=== PATIENT | male | born 1940 | race Caucasian/White ===

== ENCOUNTER 2021-03-29 09:39 | Inpatient (IN) | payer MEDICARE, OTHER, SELFPAY ==
[2021-03-29] VITALS (31 sets, daily range): BP systolic 107–144; BP diastolic 50–79; PULSE 41–67; RESP 14–24; TEMP 35.9–37; O2SAT 95–100; BMI 33.4; BMI 30.6
[2021-03-29] MEDS: 0.9% Normal Saline 1,000 ML 999 ML IV (09:39)
[2021-03-29] MEDS: Heparin Injection (Vial) 5,000 UNIT/ML VIAL 4000 UNIT IV (09:45)
[2021-03-29] MEDS: TICAGRELOR 90 MG TABLET 180 MG PO (09:45)
--- NOTE | 2021-03-29 09:46 | EKG12_ITS ---
Test Reason : CP/PRE-HOSP STEMI Blood Pressure : / mmHG Vent. Rate : 047 BPM Atrial Rate : 047 BPM P-R Int : 216 ms QRS Dur : 084 ms QT Int : 458 ms P-R-T Axes : 013 020 083 degrees QTc Int : 405 ms Sinus bradycardia with 1st degree A-V block Inferior infarct , acute Lateral injury pattern ACUTE [place] / STEMI Consider right ventricular involvement in acute inferior infarct Abnormal ECG Confirmed by DONOVAN TUCKER, HARMEET ([id number]), deputy editor in chief KAMRYN LOBATO ([id number]) on 04/03/2021 12:50:00 PM Referred By: Socorro Reyes Confirmed By:HARMEET MAN MD
--- NOTE | 2021-03-29 09:47 | ED.VIS.CHEST ---
HPI History of Present Illness Chief Complaint: Chest Pain Informant: patient and EMS Narrative Narrative: 81-year-old male presents the emergency department with chest pain. Patient called EMS after experiencing chest pain while mowing his lawn. He notes a history of hypertension and takes atenolol 20 mg once a day. He denies any history of smoking high cholesterol or diabetes. He denies any black or bloody stools recent trauma or bleeding disorders. Prehospital EKG activated STEMI for inferior lateral ST elevation. PFSH PFS Medical History Hypertension Prostate cancer Home Medications atenolol 20 mg PO DAILY 03/29/21 [History Last Taken Unknown] Allergy/AdvReac Type Severity Reaction Status Date / Time Sulfa (Sulfonamide Allergy PT UNSURE Verified 03/29/21 09:41 Antibiotics) OF REACTION Social History (Updated 03/29/21 @ 09:[address] Elian Lucero, DO) Smoking Status: Never smoker alcohol intake: never ROS ROS ED Constitutional Constitutional ED: Denies chills or weight loss Eyes Eyes: Denies change in vision or diplopia ENT ENT ED: Denies ear pain, rhinorrhea or sore throat Cardiovascular Cardiovascular: Reports chest pain; Denies orthopnea, palpitations or racing heartbeat Respiratory/Chest Respiratory/Chest: Denies cough, dyspnea or orthopnea Gastrointestinal Gastrointestinal: Denies abdominal pain, diarrhea, nausea or vomiting Genitourinary Genitourinary ED: Denies dysuria, hematuria or urinary frequency Musculoskeletal Musculoskeletal: Denies arthralgias or myalgias Integumentary Denies abscess or rash Neurologic Neurologic: Denies headache(s) or weakness Psychiatric Psychiatric: Denies anxiety, depression, suicidal ideation or suicidal thoughts Endocrine Endocrinology: Denies polydipsia, polyphagia or polyuria Allergic/Immunologic Allergic/Immunologic ED: Denies mouth swelling, tongue swelling or urticaria EXAM Physical Exam Const Vital Signs: 03/29/21 09:41 Respiratory Rate 18 Blood Pressure 110/65 Positive well nourished and well developed General Appearance ED: well developed HEENT Reports normocephalic, head/scalp atraumatic and moist mucous membranes Eyes PERRL and EOMs intact bilaterally Neck no lymphadenopathy, supple and no JVD Resp normal respiratory effort and clear to auscultation bilaterally Cardio regular rate and no murmurs Rate: bradycardia GI normal to inspection, nondistended, normoactive bowel sounds and non-tender Palpation: soft Back/Spine no CVA tenderness and normal ROM Extremity normal to inspection General Extremety ED: Negative for edema General Extremity: Negative for edema Neuro oriented x3 and CN's II-XII intact bilaterally Sensorium / Orientation: alert Motor Exam: strength 5/5 throughout Psych mental status grossly normal Mood & Affect: Negative for depressed or tearful Skin no rashes or lesions noted and no wounds Skin Narrative: Diaphoresis Heart Score History: Highly Suspicious ECG: Significant ST-Depression Age: >/= 65 years Risk Factors: 1 or 2 Risk Factors Score: 7 MDM MDM MDM Narrative Medical decision making narrative: Prehospital STEMI team was activated. Upon arrival the emergency department and after interviewing him the patient received 180 mg of Brilinta 4000 units of heparin. 4 baby aspirin's were previously administered by EMS. Because of the bradycardia and the inferior elevation nitroglycerin was held. He was prepped and taken to the Community Service Officer Coordinator. Lab Data Attestation: I reviewed the patient's lab results. EKG Initial EKG: Attestation: I personally reviewed and interpreted this EKG as follows: Comments: EKG demonstrates a sinus bradycardia with first-degree AV block. There is ST elevation noted inferiorly and laterally. Ventricular rate 47 bpm Critical Care Time Critical Care Time: Yes Critical care time (excluding procedures): 30-74 minutes (5 minutes), Including time spent:, Discussing w/Patient &/or Family/Concrete Tile Machine Operator, Discussing w/Consultants, Arranging Admission or Transfer and Performing Direct Patient Care at Bedside Discharge Plan Dx/Rx/DC Orders Clinical Impression: ST elevation (STEMI) myocardial infarction Disposition Disposition: Acute Care Hospital [facility] Discharge Date/Time: 03/29/21 09:46
--- NOTE | 2021-03-29 09:49 | NURSING ---
NO OLD EKGS
[2021-03-29 10:03] LABS: Absolute Lymphocyte Count 2.44 X10^3/uL (0.83-4.51); Absolute Neutrophil Count 3.2 X10^3/uL (2.0-7.7); Basophil# 0.04 X10^3/uL; Basophil% 0.6 % (0-1); Eosinophil# 0.17 X10^3/uL; Eosinophils% 2.6 % (0-5); Hematocrit 37.5 % (40-54); Hemoglobin 12.9 g/dL (13.0-16.5); Lymphocyte # 2.44 X10^3/ul (0.83-4.51); Lymphocyte % 37.5 % (19-41); Mean Corp Hgb Conc 34.4 g/dL (32-36); Mean Corpuscular Hgb 31.9 pg (27.0-32.0); Mean Corpuscular Volume 92.6 fL (80-94); Mean Platelet Vol. 9.2 fl (6.2-12.0); Monocyte# 0.65 X10^3/uL; NRBC Flagged by Analyzer 0 % (0-5); Neutrophil # 3.18 X10^3/uL (2.7-7.7); Neutrophil % 48.8 % (47-70); Platelet Count 244 K/mm3 (150-450); RBC Distribution Width CV 12.5 % (11.6-14.6); RBC Distribution Width SD 42.2 fl (35.1-43.9); Red Blood Count 4.05 M/mm3 (4.6-6.2); White Blood Count 6.5 K/mm3 (4.4-11.0)
--- NOTE | 2021-03-29 10:05 | NURSING ---
ICU [facility] STEMI
[2021-03-29 10:08] LABS: International Normalized Ratio 1.2; Prothrombin Time (Protime)PT. 14.4 SECONDS (11.7-14.9)
[2021-03-29 10:10] LABS: Partial Thromboplast Time 28.5 Seconds (24.1-36.2)
[2021-03-29 10:15] LABS: Anion Gap 6 (5-15); BUN 14 mg/dL (7-18); BUN/Creat Ratio 11.6 RATIO (10-20); Calcium,Total 9.1 mg/dL (8.5-10.1); Chloride 108 mmol/L (98-107); Creatinine, Serum 1.21 mg/dL (0.70-1.30); EST Glomerular Filtration Rate 61 mL/min (>60); Est Glom Filt Rate - Afr Amer 74 mL/min (>60); Estimated Creatinine Clearance 45.54 ml/min; Glucose 161 mg/dL (74-106); Potassium 3.9 mmol/L (3.5-5.1); Sodium Level 138 mmol/L (136-145); Troponin-I HS 21.9 pg/mL (3.0-78.5)
--- NOTE | 2021-03-29 11:11 | EKG12_ITS ---
Test Reason : AM EKG Blood Pressure : / mmHG Vent. Rate : 051 BPM Atrial Rate : 051 BPM P-R Int : 206 ms QRS Dur : 070 ms QT Int : 548 ms P-R-T Axes : 037 -41 -63 degrees QTc Int : 505 ms Sinus bradycardia Left axis deviation Inferior infarct , age undetermined ST & T wave abnormality, consider lateral ischemia Confirmed by DONOVAN TUCKER, HARMEET ([id number]), editor house organ KAMRYN LOBATO ([id number]) on 04/04/2021 7:48:55 AM Referred By: Socorro Reyes Confirmed By:HARMEET MAN MD
--- NOTE | 2021-03-29 11:24 | PCI.CARDCATH ---
PCI Cardiac Cath Report PCI Report: Procedures performed; 1. Left heart catheterization 2. Left ventriculogram and measurement of LVEDP 3. Selective cholangiography 4. Successful percutaneous coronary intervention/PCI of the culprit occluded large dominant RCA with reduction of stenosis to 0 Initial NADIYA flow is 0 post procedure NADIYA-3 flow 5. Placement of Perclose to close the right common femoral artery arteriotomy site 6 TR band to the right radial artery to maintain hemostasis of the arteriotomy site. Preprocedure diagnosis; 81-year-old male who developed severe retrosternal chest pain with diaphoresis while working on his yard mowing the lawn Brought in by EMS service with STEMI, sinus bradycardia, heart rate 41, and significant ST elevation in the inferior and lateral leads with reciprocal change in septal leads V1?V2 Was given aspirin 324 and heparin 4000 international unit. Diagnostic and interventional equipment used; 1. 5 Wallisian JL 4.5 2. 5 Wallisian JR4 guide catheter 3. By 014 run-through extra floppy 180 cm straight guidewire 4. Emergent MR 2.5 x 50 mm balloon 5. Drug-eluting stent/Orsiro 4 x 26 mm 6. Emerge NC 4 x 15 mm for postdilatation. Procedure in detail; We obtained access from the right radial artery, right common femoral artery due to severe bradycardia and a low blood pressure around 100 mmHg Patient was given the heparin IV. We proceed with the 5 Wallisian JL 4.5, cannulated the left main without difficulty multiple views of the left coronary system including JOSE, MEJIA cranial and caudal views. Then we proceed with a JR4 identified the lesion the culprit which is occluded proximal large dominant RCA. Then will proceed with him JR4 guide catheter angiographic view obtained and then will proceed with the guidewire, across the lesion predilated the lesion with 2.5 x 15 followed by placement of drug-eluting stent/Orsiro 4 x 26 mm, postdilated with 4 x 15 mm NC balloon/emerge and achieve NADIYA-3 flow, noted there is a lesion in the RPDA which is small vessel around 2 mm. Pigtail catheter used 5 Wallisian, angled pigtail catheter and a low ventriculogram using 30 cc of contrast obtained in, 30 degree MEJIA projection. Following this selective right common femoral artery angiography obtain and Perclose used to close arteriotomy site. Findings; Hemodynamics; LV systolic function preserved ejection fraction of 50-55% There is no systolic gradient across aortic valve LVEDP measuring around 18 mmHg Coronary angiography 1. Left main coronary artery, luminal irregularity bifurcating into LAD and the left circumflex. 2. LAD, moderate size vessel, tortuous with diffuse atherosclerosis of around 60-70% with bridging in the mid LAD 3. The left circumflex is small with nonobstructive proximal atherosclerosis of around 20-30 4. Occluded culprit lesion and a large dominant proximal RCA with predilatation and placement of drug-eluting stent and maintaining of NADIYA-3 flow in the RCA 5. Successful placement of Perclose to close the right common femoral artery arteriotomy and a TR band to maintain hemostasis to the right radial artery with no complication in the Front End Architect Remarkable ST normalization noted with no, significant arrhythmia or high-grade AV block And resolution of symptoms of chest pain. Medication and dosage; 1. Patient was given a total of 6000 international unit IV heparin and 3000 units heparin through the right radial artery sheath ACT level is 263 2. Integrilin 2 bolus followed by Integrilin based on his renal function. 3. Brilinta 180 mg, and aspirin 324 mg 4. 0.5 mg of atropine Conclusion and recommendation; Successful percutaneous coronary intervention of occluded large, dominant proximal RCA as a specified Lesion in the RPDA small vessel 60?70%, multiple attempts to cross was difficult left alone to reevaluate on his next visit with assessment of the mid LAD Based on the stress test which can be set up as an outpatient by established medical records supervisor Dr. Ruiz Patient to continue on dual antiplatelet therapy/DAPT Brilinta 90 mg twice daily and a low-dose aspirin 81 mg for 1 year to be monitored by his medical records supervisor Dr. Ruiz I discontinue atenolol High-dose atorvastatin 80 mg. And will consider beta-rajiv and SHERRI inhibitor in the morning once he is stable. Finding of cardiac catheterization and plan of treatment discussed with the family patient and the primary medical records supervisor Dr. Ruiz. Socorro Reyes MD,[facility] decision science analyst
[2021-03-29 12:31] LABS: Absolute Lymphocyte Count 0.53 X10^3/uL (0.83-4.51); Basophil# 0.02 X10^3/uL; Basophil% 0.3 % (0-1); Eosinophil# 0.02 X10^3/uL; Eosinophils% 0.3 % (0-5); Hematocrit 35.4 % (40-54); Hemoglobin 11.7 g/dL (13.0-16.5); Lymphocyte # 0.53 X10^3/ul (0.83-4.51); Lymphocyte % 7.8 % (19-41); Mean Corp Hgb Conc 33.1 g/dL (32-36); Mean Corpuscular Hgb 31.4 pg (27.0-32.0); Mean Corpuscular Volume 94.9 fL (80-94); Monocyte# 0.26 X10^3/uL; Monocyte% 3.8 % (0-10); NRBC Flagged by Analyzer 0 % (0-5); Neutrophil # 5.97 X10^3/uL (2.7-7.7); Neutrophil % 87.5 % (47-70); POSITIVE DIFFERENTIAL YES; Platelet Count 168 K/mm3 (150-450); RBC Distribution Width CV 12.6 % (11.6-14.6); RBC Distribution Width SD 43.3 fl (35.1-43.9); Red Blood Count 3.73 M/mm3 (4.6-6.2); White Blood Count 6.8 K/mm3 (4.4-11.0)
[2021-03-29] MEDS: 0.9% Saline Lock 10 ML Syringe IV (12:32)
[2021-03-29] MEDS: 0.9% Normal Saline 1,000 ML 75 ML IV ×2 (12:32→23:27)
[2021-03-29 12:35] LABS: Differential Indicated SCAN CRITERIA MET
--- NOTE | 2021-03-29 12:41 | CRPHASE1_ITS ---
Patient Communication PHII Cardiac Rehab Discussed with Patient:: Yes Guide to Cardiac Rehab Given to Patient:: Yes Cardiac Rehab Facility Choice List Given to Patient:: Yes Choice Program [facility] CR PHII:: Communication Given to CR Choice Program Other:: Communication Given to CR Visual Merchandising Director:: Socorro Reyes Phase II Cardiac Rehab:: Yes Sessions:: 36 sessions - 3 days/wk, 12 weeks Cardiac Rehabilitation Info Cardiac Rehabilitation Program Information: Cardiac Rehabilitation is important for patients like you who are recovering from a heart problem. Cardiac rehabilitation programs are recognized as integral to the continued care of the patient with coronary heart disease. The cardiac rehabilitation program is designed to optimize a patient's physical, psychological, and social functioning. Health day care director work in cardiac rehabilitation programs and assist you with getting the treatments you need to get stronger and healthier - like exercise, healthy eating habits, and medications. Cardiac rehabilitation has been show to help people with heart problems live longer and have better life enjoyment than people who do not go to cardiac rehabilitation. Please contact the Cardiac Rehabilitation Program at [facility] at in two weeks if you have not heard from them.
--- NOTE | 2021-03-29 12:42 | CRPH1.INST_ITS ---
General Education CAD and cardiac anatomy and function:: Patient communicates acknowledgment Explanation of diagnoses and procedures:: Patient communicates acknowledgment Sign/Symptoms of VA:: Patient communicates acknowledgment Antiplatelet therapy: Patient communicates acknowledgment Smoking Patient Nicotine/Smoking Risk Factors Are:: Never smoked Dyslipidemia Recommendations Include:: Lipid profile not available Overweight/Obesity Patient Overweight/Obesity Risk Factors Are:: Obesity - > or = 30 Recommendations Include:: Weight loss of 5-10%, Reduced calorie diet, Exercise 5-7 times/week Overweight/Obesity:: Patient communicates acknowledgment Hypertension Recommendations Include:: Maintain BP <130/85, BP <130/80 if diabetic, DASH dietary guidelines, Decrease/maintain normal body weight Hypertension:: Patient communicates acknowledgment Diabetes Patient Diabetes Risk Factors Are:: No documented hx of diabetes Metabolic Syndrome Patient Metabolic Syndrome Risk Factors Are [3 of 5]:: Fasting blood sugar > 100 mg/dL, Waist circumference > 35 [female] or 40 [male], Hypertension Recommendations Include:: Does not meet criteria Metabolic Syndrome Response Code:: Patient communicates acknowledgment Sedentary Patient Sedentary Risk Factors Are:: Lack of regular exercise Recommendations Include:: Aerobic exercise 5-7 times/week for 20-30 minutes continuously, Benefits of regular exercise, Discussed home walking program, Mo nitored Outpatient Cardiac Rehab Sedentary Response Code:: Patient communicates acknowledgment Stress Recommendations Include:: Identification of stressors, and assessment of coping skills, Stress management techniques Stress Response Code:: Patient communicates acknowledgment
[2021-03-29 12:50] LABS: Anion Gap 7 (5-15); BUN 12 mg/dL (7-18); BUN/Creat Ratio 12.7 RATIO (10-20); Calcium,Total 8.1 mg/dL (8.5-10.1); Chloride 105 mmol/L (98-107); Creatinine, Serum 0.94 mg/dL (0.70-1.30); EST Glomerular Filtration Rate 81 mL/min (>60); Est Glom Filt Rate - Afr Amer 98 mL/min (>60); Glucose 111 mg/dL (74-106); Potassium 4.8 mmol/L (3.5-5.1); Sodium Level 134 mmol/L (136-145)
--- NOTE | 2021-03-29 13:13 | NURSING ---
integrilin gtt running at 16 ml/hr when arrived to ICU, patient weight documented at 100 kg. Per ICU bed, pt weight 83.4 kg, integrilin gtt now running at 13.3 ml/hr
--- NOTE | 2021-03-29 14:59 | HP.PCM.HOS_ITS ---
HPI - General General Date of Admission: 03/29/21 HPI Narrative ANNEMARIE SAMANO, is a 81 M who presents to the hospital with chest pain. It occurred while working in his yard and mowing the lawn. He denies having symptoms like this prior. When he arrived as a STEMI alert he was noticed to be bradycardic with a heart rate in the 40s he had ST elevations in the inferior leads as well as the lateral leads with reciprocal changes in V1 and V2. He was loaded with aspirin as well as heparin and taken straight to the Gas Generator Operator where he was found to have an RCA lesion as well as a mid LAD lesion. He had the RCA lesion stented with a drug-eluting stent. [facility] Medical History (Updated 03/29/21 @ 15:[address] Pedro Mcintyre MD) Anxiety Hypertension Prostate cancer Home Medications atenolol 20 mg PO DAILY 03/29/21 [History Last Taken Unknown] Allergy/AdvReac Type Severity Reaction Status Date / Time Sulfa (Sulfonamide Allergy PT UNSURE Verified 03/29/21 09:41 Antibiotics) OF REACTION Family History (Updated 03/29/21 @ 15:[address] Pedro Mcintyre MD) Father Cancer Mother Heart disease Surgical History (Updated 03/29/21 @ 15:[address] Pedro Mcintyre MD) Status post coronary artery stent placement Status post inguinal hernia repair Social History (Updated 03/29/21 @ 09:[address] Elian Lucero DO) Smoking Status: Never smoker alcohol intake: never ROS Constitutional Constitutional: Denies chills, fatigue, fever(s) or malaise Eyes Eyes: Denies blurry vision ENT HEENT: Denies headache(s) or nasal discharge Cardiovascular Cardiovascular: Reports chest pain and diaphoresis; Denies dyspnea on exertion or syncope Respiratory/Chest Respiratory/Chest: Denies cough, shortness of breath at rest or shortness of breath with exertion Gastrointestinal Gastrointestinal: Reports nausea; Denies constipation, diarrhea or vomiting Genitourinary Genitourinary: Denies dysuria Neurologic Neurologic: Denies focal weakness, numbness or tremor(s) Psychiatric Psychiatric: Denies anxiety or depression Vital Signs Vital Signs Vital Signs: 03/29/21 09:41 03/29/21 09:46 03/29/21 09:53 Temperature 97 F L Temperature Source Temporal Pulse Rate 41 L Respiratory Rate 18 18 Respiratory Effort Short of Breath Respiratory Pattern Normal Blood Pressure 110/65 110/65 Blood Pressure [BP] Blood Pressure Mean 80 Blood Pressure Mean [BP] Blood Pressure Source Blood Pressure Source [BP] Blood Pressure Position Blood Pressure Position [BP] Blood Pressure Location Blood Pressure Location [BP] Pulse Ox 96 Oxygen Delivery Method Room Air Oxygen Flow Rate (L/min) 2 03/29/21 10:03 03/29/21 11:30 03/29/21 11:44 Temperature 97.8 F 96.7 F L Temperature Source Temporal Temporal Pulse Rate 46 L 56 L 60 Respiratory Rate 18 17 Respiratory Effort Respiratory Pattern Blood Pressure 110/70 129/79 H Blood Pressure [BP] Blood Pressure Mean 83 95 Blood Pressure Mean [BP] Blood Pressure Source Monitor Blood Pressure Source [BP] Blood Pressure Position Semi-Fowlers Blood Pressure Position [BP] Blood Pressure Location Left Arm Blood Pressure Location [BP] Pulse Ox 97 100 Oxygen Delivery Method Room Air Room Air Oxygen Flow Rate (L/min) 03/29/21 11:45 03/29/21 12:00 03/29/21 12:15 Temperature 96.7 F L Temperature Source Temporal Pulse Rate 59 L 61 54 L Respiratory Rate 16 14 19 H Respiratory Effort Respiratory Pattern Blood Pressure 127/71 H 141/75 H 140/62 H Blood Pressure [BP] Blood Pressure Mean 89 97 88 Blood Pressure Mean [BP] Blood Pressure Source Monitor Monitor Monitor Blood Pressure Source [BP] Blood Pressure Position Semi-Fowlers Semi-Fowlers Semi-Fowlers Blood Pressure Position [BP] Blood Pressure Location Left Arm Left Arm Left Arm Blood Pressure Location [BP] Pulse Ox 99 99 99 Oxygen Delivery Method Room Air Room Air Room Air Oxygen Flow Rate (L/min) 03/29/21 12:30 03/29/21 12:45 03/29/21 13:00 Temperature Temperature Source Pulse Rate 54 L 52 L 56 L Respiratory Rate 16 16 19 H Respiratory Effort Respiratory Pattern Blood Pressure 144/67 H 138/64 H Blood Pressure [BP] 138/70 H Blood Pressure Mean 92 88 Blood Pressure Mean [BP] 92 Blood Pressure Source Monitor Monitor Blood Pressure Source [BP] Monitor Blood Pressure Position Semi-Fowlers Supine Blood Pressure Position [BP] Supine Blood Pressure Location Left Arm Left Arm Blood Pressure Location [BP] Left Arm Pulse Ox 99 99 100 Oxygen Delivery Method Room Air Room Air Room Air Oxygen Flow Rate (L/min) Weight Weight: 183 lb 13.848 oz Body Mass Index (BMI) 30.6 Physical Exam Const alert, oriented x3 and no apparent distress General Appearance: cooperative HEENT normocephalic and moist oral mucous membranes Eyes PERRL, EOMs intact bilaterally and conjunctivae normal Neck supple and no JVD Resp normal respiratory effort, no retractions, no use of accessory muscles and clear to auscultation bilaterally Auscultation: Negative for crackles, rales, rhonchi or wheezes Cardio regular rate, regular rhythm, S1 normal heart sound, S2 normal heart sound and no murmurs GI soft to palpation, non-tender and non-distended; Negative for hepatosplenomegaly Extremity no clubbing, cyanosis or edema Skin no rashes or lesions noted Skin Narrative: Dressing CDI Neuro no focal motor deficits and no sensory deficits noted Psych affect normal Appearance: appropriate Results Lab / Micro Data Result Diagrams: 03/29/21 12:10 03/29/21 12:10 Labs: Laboratory Results - last 24 hr 03/29/21 03/29/21 03/29/21 09:45 09:45 09:45 WBC 6.5 RBC 4.05 L Hgb 12.9 L Hct 37.5 L MCV 92.6 MCH 31.9 MCHC 34.4 RDW Std Deviation 42.2 RDW Coeff of Devyn 12.5 Plt Count 244 MPV 9.2 Immature Gran % (Auto) 0.500 Neut % (Auto) 48.8 Lymph % (Auto) 37.5 [place] % (Auto) 10.0 Eos % (Auto) 2.6 Baso % (Auto) 0.6 Absolute Neuts (auto) 3.2 Absolute Lymphs (auto) 2.44 Nucleated RBC % 0 PT 14.4 INR 1.2 APTT 28.5 Sodium 138 Potassium 3.9 Chloride 108 H Carbon Dioxide 24.0 Anion Gap 6 BUN 14 Creatinine 1.21 Estim Creat Clear Calc 45.54 Est GFR (MDRD) Af Amer 74 Est GFR (MDRD) Non-Af 61 BUN/Creatinine Ratio 11.6 Glucose 161 H Calcium 9.1 Troponin I High Sens 21.9 03/29/21 03/29/21 03/29/21 12:10 12:10 14:15 WBC 6.8 RBC 3.73 L Hgb 11.7 L Hct 35.4 L MCV 94.9 H MCH 31.4 MCHC 33.1 RDW Std Deviation 43.3 RDW Coeff of Devyn 12.6 Plt Count 168 MPV 9.0 Immature Gran % (Auto) 0.300 Neut % (Auto) 87.5 H Lymph % (Auto) 7.8 L [place] % (Auto) 3.8 Eos % (Auto) 0.3 Baso % (Auto) 0.3 Absolute Neuts (auto) 6.0 Absolute Lymphs (auto) 0.53 L Nucleated RBC % 0 PT INR APTT Sodium 134 L Potassium 4.8 Chloride 105 Carbon Dioxide 22.0 Anion Gap 7 BUN 12 Creatinine 0.94 Estim Creat Clear Calc 52.70 Est GFR (MDRD) Af Amer 98 Est GFR (MDRD) Non-Af 81 BUN/Creatinine Ratio 12.7 Glucose 111 H Calcium 8.1 L Troponin I High Sens 58218.9 H* 07946.8 H* Assessment & Plan Assessment/Plan (1) ST elevation (STEMI) myocardial infarction: (2) CAD (coronary artery disease): (3) Hypertension: PLAN: 1. STEMI status post cath 03/29/2021/CAD status post stent/HTN -Continue with aspirin and Brilinta -Drug-eluting stent placed to the RCA -Echo in the morning -Hold his beta-rajiv and continue with Lipitor for now, if his blood pressure can tolerate it in the morning can potentially start him on a low-dose SHERRI inhibitor DVT: Ambulation Charges/Coding Visit Charges Inpatient E&M: 11134 Init Hosp L2
--- NOTE | 2021-03-29 16:55 | RAD_ITS ---
INDICATION: chest pain -- If not obtained within past 24 hours. EXAMINATION/TECHNIQUE: X-RAY - XR Chest 1 View COMPARISON: None. FINDINGS: Left basilar atelectasis versus small effusion. Tortuous and calcified thoracic aorta. The heart is borderline enlarged. No pneumothorax. No acute osseous abnormalities. RAD/Chest 1 View (Portable) IMPRESSION: Borderline cardiomegaly with left basilar atelectasis versus small pleural effusion. Electronically Signed: Flakito Taylor MD at 17:25 EDT Tel , Service support ,
[2021-03-29] MEDS: Atorvastatin Calcium 80 MG Tablet PO (21:10)
[2021-03-29] MEDS: Acetaminophen 325 MG Tablet 650 MG PO (23:21)
[2021-03-29] MEDS: MELATONIN 3 MG TABLET PO (23:21)
[2021-03-30] VITALS (20 sets, daily range): BP systolic 97–137; BP diastolic 37–67; PULSE 51–70; RESP 16–25; TEMP 36.3–37.7; O2SAT 96–99
[2021-03-30 04:24] LABS: Hemoglobin 10.8 g/dL (13.0-16.5); Mean Corp Hgb Conc 33.8 g/dL (32-36); Mean Corpuscular Hgb 32.2 pg (27.0-32.0); Mean Corpuscular Volume 95.5 fL (80-94); Mean Platelet Vol. 9.6 fl (6.2-12.0); Platelet Count 193 K/mm3 (150-450); RBC Distribution Width CV 12.7 % (11.6-14.6); RBC Distribution Width SD 43.8 fl (35.1-43.9); Red Blood Count 3.35 M/mm3 (4.6-6.2); White Blood Count 5.8 K/mm3 (4.4-11.0)
[2021-03-30 04:50] LABS: Anion Gap 10 (5-15); BUN 16 mg/dL (7-18); BUN/Creat Ratio 16.6 RATIO (10-20); Calcium,Total 8.1 mg/dL (8.5-10.1); Chloride 106 mmol/L (98-107); Creatinine, Serum 0.96 mg/dL (0.70-1.30); EST Glomerular Filtration Rate 79 mL/min (>60); Est Glom Filt Rate - Afr Amer 96 mL/min (>60); Estimated Creatinine Clearance 51.61 ml/min; Glucose 95 mg/dL (74-106); Potassium 3.5 mmol/L (3.5-5.1); Sodium Level 139 mmol/L (136-145)
[2021-03-30] MEDS: Acetaminophen 325 MG Tablet 650 MG PO (05:15)
--- NOTE | 2021-03-30 05:55 | ECHOCS_ITS ---
Procedure This was a 2D Doppler, Color Flow transthoracic echocardiogram. The study was technically difficult. Contrast injection was performed. Exam performed portable in ICU/CCU. Left Ventricle Normal LV size. Left ventricular systolic function is normal. The estimated ejection fraction is 55 %. Mild segmental systolic dysfunction (see wall motion). Stage 2 diastolic dysfunction. Infero- Basal: Hypokinetic. Right Ventricle Normal RV size. Normal systolic function. Atria Normal left atrium. Normal right atrium. Mitral Valve Normal mitral valve. Tricuspid Valve Normal tricuspid valve. Moderate (2+) tricuspid valve insufficiency. Pulmonary artery systolic pressure is 56 mmHg. Moderate pulmonary hypertension. Aortic Valve Trisinus/trileaflet aortic valve. Mild focal aortic valve calcification. Pulmonic Valve Normal pulmonic valve. Great Vessels Normal aortic root. The pulmonary is not well visualized. Pericardium/Pleural No pericardial effusion. Medication Diluted definity 3ml given slow IV push to enhance endocardial definition. MMode/2D Measurements & Calculations LVIDd: 4.7 cm IVSd: 1.1 cm LVOT diam: 2.0 cm LVIDs: 2.8 cm LVPWd: 1.1 cm RVDd: 4.1 cm FS: 40.2 % LVOT area: 3.1 cm2 Ao root diam: 4.4 cm LAV(MOD-bp): 55.5 ml LVAd ap4: 35.2 cm2 LAV(MOD-bp) Indexed: 29.1 ml/m2 LVLd ap4: 8.3 cm LAV(MOD-sp2): 56.8 ml EDV(MOD-sp4): 121.8 ml LAV(MOD-sp4): 49.7 ml EDV(sp4-el): 126.6 ml LVAs ap4: 14.4 cm2 LVLs ap4: 5.7 cm ESV(MOD-sp4): 29.7 ml ESV(sp4-el): 30.7 ml EF(MOD-sp4): 75.6 % EF(sp4-el): 75.8 % LVAd ap2: 28.8 cm2 SV(MOD-sp4): 92.1 ml SV(MOD-sp2): 68.7 ml LVLd ap2: 7.3 cm EDV(MOD-sp2): 93.9 ml EDV(sp2-el): 96.3 ml LVAs ap2: 13.0 cm2 LVLs ap2: 5.5 cm ESV(MOD-sp2): 25.1 ml ESV(sp2-el): 26.2 ml EF(MOD-sp2): 73.2 % SV(sp4-el): 95.9 ml LA dimension(2D): 3.8 cm LA A4 area: 19.8 cm2 RA A4 area: 13.0 cm2 Time Measurements MV dec time: 0.18 sec Doppler Measurements & Calculations MV E max howard: 107.3 cm/sec Lat Peak E' Howard: 9.5 cm/sec Med Peak E' Howard: 6.3 cm/sec MV A max howard: 76.3 cm/sec E/E' lat: 11.3 E/E' med: 17.0 MV E/A: 1.4 Ao V2 max: 188.1 cm/sec LV V1 max: 129.0 cm/sec PA V2 max: 133.3 cm/sec Ao max P.2 mmHg LV V1 max P.7 mmHg KOFI(V,D): 2.1 cm2 TR max howard: 356.9 cm/sec TR max P.0 mmHg ECHO/Echo Complete W/ Contrast Interpretation Summary Normal LV size. Left ventricular systolic function is normal. The estimated ejection fraction is 55 %. Infero-Basal: Hypokinetic Stage 2 diastolic dysfunction. Pulmonary artery systolic pressure is 56 mmHg. Moderate pulmonary hypertension. Contrast injection was performed. Ordering Physician: YANCI SANCHEZ Referring Physician: S/P UT Performed By: Holly Morocho, GERALD, RVT
--- NOTE | 2021-03-30 05:55 | EKG12_ITS ---
Test Reason : POST CARDIAC CATH Blood Pressure : / mmHG Vent. Rate : 057 BPM Atrial Rate : 057 BPM P-R Int : 210 ms QRS Dur : 072 ms QT Int : 450 ms P-R-T Axes : 030 -30 003 degrees QTc Int : 438 ms Sinus bradycardia with 1st degree A-V block with occasional Premature ventricular complexes Left axis deviation Inferior infarct , age undetermined Abnormal ECG When compared with ECG of 29-MAR-2021 09:41, MANUAL COMPARISON REQUIRED, DATA IS UNCONFIRMED Confirmed by DONOVAN TUCKER, HARMEET ([id number]), commissioning editor KAMRYN LOBATO ([id number]) on 04/04/2021 7:49:08 AM Referred By: Socorro Reyes Confirmed By:HARMEET MAN MD
[2021-03-30] MEDS: Ondansetron 4 MG/2 ML Vial IV (06:14)
[2021-03-30] MEDS: TITRATION PARAMETER CHANGE 1 EACH IV (07:20)
--- NOTE | 2021-03-30 07:48 | PCM.PN.CARD ---
Subjective Subjective Patient seen and evaluated. Appears to be doing better this morning. Was walking around the ICU yesterday. Objective Data Vital Signs: Vital Signs Temp Pulse Resp BP Pulse Ox 98.2 F 57 L 19 H 119/62 98 03/30/21 00:00 03/30/21 07:30 03/30/21 07:00 03/30/21 07:00 03/30/21 07:00 Oxygen Flow Rate (L/min) 2 Oxygen Delivery Method Room Air Weight: 184 lb 11.958 oz Body Mass Index (BMI) 30.6 Intake & Output: Intake and Output for Last 24 Hours 03/28/21 03/29/21 03/30/21 23:59 23:59 23:59 Intake Total 2315.70 / 2415.70 415.32 / 415.32 Output Total 875 / 875 400 / 400 Balance 1440.70 / 1540.70 15.32 / 15.32 Lab / Micro Data Result Diagrams: 03/30/21 03:05 03/30/21 03:05 Labs: Laboratory Results - last 24 hr 03/29/21 03/29/21 03/29/21 09:45 09:45 09:45 WBC 6.5 RBC 4.05 L Hgb 12.9 L Hct 37.5 L MCV 92.6 MCH 31.9 MCHC 34.4 RDW Std Deviation 42.2 RDW Coeff of Devyn 12.5 Plt Count 244 MPV 9.2 Immature Gran % (Auto) 0.500 Neut % (Auto) 48.8 Lymph % (Auto) 37.5 [place] % (Auto) 10.0 Eos % (Auto) 2.6 Baso % (Auto) 0.6 Absolute Neuts (auto) 3.2 Absolute Lymphs (auto) 2.44 Nucleated RBC % 0 PT 14.4 INR 1.2 APTT 28.5 Sodium 138 Potassium 3.9 Chloride 108 H Carbon Dioxide 24.0 Anion Gap 6 BUN 14 Creatinine 1.21 Estim Creat Clear Calc 45.54 Est GFR (MDRD) Af Amer 74 Est GFR (MDRD) Non-Af 61 BUN/Creatinine Ratio 11.6 Glucose 161 H Calcium 9.1 Troponin I High Sens 21.9 03/29/21 03/29/21 03/29/21 12:10 12:10 14:15 WBC 6.8 RBC 3.73 L Hgb 11.7 L Hct 35.4 L MCV 94.9 H MCH 31.4 MCHC 33.1 RDW Std Deviation 43.3 RDW Coeff of Devyn 12.6 Plt Count 168 MPV 9.0 Immature Gran % (Auto) 0.300 Neut % (Auto) 87.5 H Lymph % (Auto) 7.8 L [place] % (Auto) 3.8 Eos % (Auto) 0.3 Baso % (Auto) 0.3 Absolute Neuts (auto) 6.0 Absolute Lymphs (auto) 0.53 L Nucleated RBC % 0 PT INR APTT Sodium 134 L Potassium 4.8 Chloride 105 Carbon Dioxide 22.0 Anion Gap 7 BUN 12 Creatinine 0.94 Estim Creat Clear Calc 52.70 Est GFR (MDRD) Af Amer 98 Est GFR (MDRD) Non-Af 81 BUN/Creatinine Ratio 12.7 Glucose 111 H Calcium 8.1 L Troponin I High Sens 56427.9 H* 56232.8 H* 03/29/21 03/30/21 03/30/21 18:00 03:05 03:05 WBC 5.8 RBC 3.35 L Hgb 10.8 L Hct 32.0 L MCV 95.5 H MCH 32.2 H MCHC 33.8 RDW Std Deviation 43.8 RDW Coeff of Devyn 12.7 Plt Count 193 MPV 9.6 Immature Gran % (Auto) Neut % (Auto) Lymph % (Auto) [place] % (Auto) Eos % (Auto) Baso % (Auto) Absolute Neuts (auto) Absolute Lymphs (auto) Nucleated RBC % PT INR APTT Sodium 139 Potassium 3.5 Chloride 106 Carbon Dioxide 23.0 Anion Gap 10 BUN 16 Creatinine 0.96 Estim Creat Clear Calc 51.61 Est GFR (MDRD) Af Amer 96 Est GFR (MDRD) Non-Af 79 BUN/Creatinine Ratio 16.6 Glucose 95 Calcium 8.1 L Troponin I High Sens 74844.4 H* 00173.6 H* Cardiology Labs/Tests 03/29/21 09:45: WBC 6.5, RBC 4.05 L, Hgb 12.9 L, Hct 37.5 L, MCV 92.6, MCH 31.9, MCHC 34.4, Plt Count 244, MPV 9.2, Immature Gran % (Auto) 0.500, Neut % (Auto) 48.8, Lymph % (Auto) 37.5, [place] % (Auto) 10.0, Eos % (Auto) 2.6, Baso % (Auto) 0.6, Absolute Neuts (auto) 3.2, Nucleated RBC % 0 03/29/21 09:45: PT 14.4, INR 1.2, APTT 28.5 03/29/21 09:45: Sodium 138, Potassium 3.9, Chloride 108 H, Carbon Dioxide 24.0, Anion Gap 6, BUN 14, Creatinine 1.21, Est GFR (MDRD) Af Amer 74, Est GFR (MDRD) Non-Af 61, BUN/Creatinine Ratio 11.6, Glucose 161 H, Calcium 9.1 03/29/21 12:10: WBC 6.8, RBC 3.73 L, Hgb 11.7 L, Hct 35.4 L, MCV 94.9 H, MCH 31.4, MCHC 33.1, Plt Count 168, MPV 9.0, Immature Gran % (Auto) 0.300, Neut % (Auto) 87.5 H, Lymph % (Auto) 7.8 L, [place] % (Auto) 3.8, Eos % (Auto) 0.3, Baso % (Auto) 0.3, Absolute Neuts (auto) 6.0, Nucleated RBC % 0 03/29/21 12:10: Sodium 134 L, Potassium 4.8, Chloride 105, Carbon Dioxide 22.0, Anion Gap 7, BUN 12, Creatinine 0.94, Est GFR (MDRD) Af Amer 98, Est GFR (MDRD) Non-Af 81, BUN/Creatinine Ratio 12.7, Glucose 111 H, Calcium 8.1 L 03/30/21 03:05: WBC 5.8, RBC 3.35 L, Hgb 10.8 L, Hct 32.0 L, MCV 95.5 H, MCH 32.2 H, MCHC 33.8, Plt Count 193, MPV 9.6 03/30/21 03:05: Sodium 139, Potassium 3.5, Chloride 106, Carbon Dioxide 23.0, Anion Gap 10, BUN 16, Creatinine 0.96, Est GFR (MDRD) Af Amer 96, Est GFR (MDRD) Non-Af 79, BUN/Creatinine Ratio 16.6, Glucose 95, Calcium 8.1 L Rhythm: EKG: ECHO: Stress Test: Cardiac Cath: PCI: CT Surgery: Holter monitor: EPS: PPM: CXR: Chest CT Scan: Radiography Diagnostic Testing: Radiology Impression Chest X-Ray 03/29/21 16:55 IMPRESSION: Borderline cardiomegaly with left basilar atelectasis versus small pleural effusion. Electronically Signed: Flakito Taylor MD at 17:25 EDT Tel , Service support , Physical Exam Const oriented x3 and healthy appearing Orientation / Consciousness: awake HEENT normocephalic Eyes PERRL and conjunctivae normal Neck supple, no JVD and no carotid bruits Chest inspection of chest normal Resp normal respiratory effort and clear to auscultation bilaterally Cardio Palpation: normal PMI Rate: regular rate Rhythm: regular rhythm Heart Sounds: S1 normal and S2 normal Peripheral Pulses: pulses 2+ throughout GI normal to inspection, nondistended, normoactive bowel sounds Extremity normal to inspection and no clubbing, cyanosis or edema Psych mental status grossly normal Assessment & Plan Assessment/Plan (1) ST elevation (STEMI) myocardial infarction: PLAN: The patient is day 1 status post inferior wall myocardial infarction and stenting of a large dominant right coronary artery. Appears to be doing remarkably well. Will obtain echocardiogram to assess left ventricular function via noninvasive means. Will discontinue Integrilin later today as well as IV fluids. Continue aspirin Continue ticagrelor Continue SHERRI inhibitor Will hold off on beta-rajiv for now Continue statin Can probably be transferred to the progressive care unit later today. Thank you for allowing me to participate in the care of your patient. Please don't hesitate to call if any issues arise.
--- NOTE | 2021-03-30 09:20 | CASEMGMT ---
This RN CM to room to complete CM assessment and pt is currently getting an ECHO. CM to attempt again later. SStaten RN CM
--- NOTE | 2021-03-30 09:34 | PCM.PN.HOSP ---
Subjective Subjective Doing well, feels much better. No further chest pain, he did have an episode of nausea early this morning with little bit of chest discomfort but that has resolved Objective Data Objective Data Vital Signs: Vital Signs Temp Pulse Resp BP Pulse Ox 98.0 F 65 19 H 123/37 H 98 03/30/21 08:00 03/30/21 09:00 03/30/21 09:00 03/30/21 09:00 03/30/21 09:00 Oxygen Flow Rate (L/min) 2 Oxygen Delivery Method Room Air Weight: 184 lb 11.958 oz Body Mass Index (BMI) 30.6 Intake & Output: Intake and Output for Last 24 Hours 03/29/21 03/30/21 03/31/21 03:59 03:59 03:59 Intake Total 2415.70 / 2515.70 535.32 / 535.32 Output Total 875 / 1125 800 / 800 Balance 1540.70 / 1390.70 -264.68 / -264.68 Lab / Micro Data Result Diagrams: 03/30/21 03:05 03/30/21 03:05 Labs: Laboratory Results - last 24 hr 03/29/21 03/29/21 03/29/21 09:45 09:45 09:45 WBC 6.5 RBC 4.05 L Hgb 12.9 L Hct 37.5 L MCV 92.6 MCH 31.9 MCHC 34.4 RDW Std Deviation 42.2 RDW Coeff of Devyn 12.5 Plt Count 244 MPV 9.2 Immature Gran % (Auto) 0.500 Neut % (Auto) 48.8 Lymph % (Auto) 37.5 [place] % (Auto) 10.0 Eos % (Auto) 2.6 Baso % (Auto) 0.6 Absolute Neuts (auto) 3.2 Absolute Lymphs (auto) 2.44 Nucleated RBC % 0 PT 14.4 INR 1.2 APTT 28.5 Sodium 138 Potassium 3.9 Chloride 108 H Carbon Dioxide 24.0 Anion Gap 6 BUN 14 Creatinine 1.21 Estim Creat Clear Calc 45.54 Est GFR (MDRD) Af Amer 74 Est GFR (MDRD) Non-Af 61 BUN/Creatinine Ratio 11.6 Glucose 161 H Calcium 9.1 Troponin I High Sens 21.9 03/29/21 03/29/21 03/29/21 12:10 12:10 14:15 WBC 6.8 RBC 3.73 L Hgb 11.7 L Hct 35.4 L MCV 94.9 H MCH 31.4 MCHC 33.1 RDW Std Deviation 43.3 RDW Coeff of Devyn 12.6 Plt Count 168 MPV 9.0 Immature Gran % (Auto) 0.300 Neut % (Auto) 87.5 H Lymph % (Auto) 7.8 L [place] % (Auto) 3.8 Eos % (Auto) 0.3 Baso % (Auto) 0.3 Absolute Neuts (auto) 6.0 Absolute Lymphs (auto) 0.53 L Nucleated RBC % 0 PT INR APTT Sodium 134 L Potassium 4.8 Chloride 105 Carbon Dioxide 22.0 Anion Gap 7 BUN 12 Creatinine 0.94 Estim Creat Clear Calc 52.70 Est GFR (MDRD) Af Amer 98 Est GFR (MDRD) Non-Af 81 BUN/Creatinine Ratio 12.7 Glucose 111 H Calcium 8.1 L Troponin I High Sens 79868.9 H* 85308.8 H* 03/29/21 03/30/21 03/30/21 18:00 03:05 03:05 WBC 5.8 RBC 3.35 L Hgb 10.8 L Hct 32.0 L MCV 95.5 H MCH 32.2 H MCHC 33.8 RDW Std Deviation 43.8 RDW Coeff of Devyn 12.7 Plt Count 193 MPV 9.6 Immature Gran % (Auto) Neut % (Auto) Lymph % (Auto) [place] % (Auto) Eos % (Auto) Baso % (Auto) Absolute Neuts (auto) Absolute Lymphs (auto) Nucleated RBC % PT INR APTT Sodium 139 Potassium 3.5 Chloride 106 Carbon Dioxide 23.0 Anion Gap 10 BUN 16 Creatinine 0.96 Estim Creat Clear Calc 51.61 Est GFR (MDRD) Af Amer 96 Est GFR (MDRD) Non-Af 79 BUN/Creatinine Ratio 16.6 Glucose 95 Calcium 8.1 L Troponin I High Sens 61465.4 H* 30293.6 H* Radiography Diagnostic Testing: Radiology Impression Chest X-Ray 03/29/21 16:55 IMPRESSION: Borderline cardiomegaly with left basilar atelectasis versus small pleural effusion. Electronically Signed: Flakito Taylor MD at 17:25 EDT Tel , Service support , Physical Exam Const alert, oriented x3 and no apparent distress General Appearance: cooperative HEENT normocephalic and moist oral mucous membranes Eyes PERRL, EOMs intact bilaterally and conjunctivae normal Neck supple and no JVD Resp normal respiratory effort, no retractions, no use of accessory muscles and clear to auscultation bilaterally Auscultation: Negative for crackles, rales, rhonchi or wheezes Cardio regular rate, regular rhythm, S1 normal heart sound, S2 normal heart sound and no murmurs GI soft to palpation, non-tender and non-distended; Negative for hepatosplenomegaly Extremity no clubbing, cyanosis or edema Skin no rashes or lesions noted Skin Narrative: Dressing CDI Neuro no focal motor deficits and no sensory deficits noted Psych affect normal Appearance: appropriate Assessment & Plan Assessment/Plan (1) ST elevation (STEMI) myocardial infarction: (2) CAD (coronary artery disease): (3) Hypertension: PLAN: 1. STEMI status post cath 03/29/2021/CAD status post stent/HTN -Continue with aspirin and Brilinta -Drug-eluting stent placed to the RCA -Echo pending -Discontinued his beta-rajiv -Lisinopril 5 mg daily, will transfer to PCU today DVT: Ambulation Charges/Coding Visit Charges Inpatient E&M: 64770 Subs Hosp L2
[2021-03-30] MEDS: TICAGRELOR 90 MG TABLET PO ×2 (10:04→21:33)
[2021-03-30] MEDS: Aspirin 81 MG TAB.CHEW PO (10:04)
[2021-03-30] MEDS: Lisinopril 5 MG Tablet PO (10:04)
--- NOTE | 2021-03-30 13:52 | NURSING ---
report called to JAVIER velasco in PCU
--- NOTE | 2021-03-30 13:54 | NURSING ---
called Kamilah, to update on patient transfer to PCU 112.
--- NOTE | 2021-03-30 14:35 | CASEMGMT ---
JAVIER MURRY Assessment: Face to Face with patient for initial transition planning/care coordination assessment. JAVIER MURRY introduced self and role at [facility], pt voices understanding and consents to assessment. Pt is sitting up in bed in no distress. Pt is A/Ox4 and answers all questions appropriately. Care providers, pharmacy, and demographics verified. Presentation: Chest pain Admitting dx: STEMI PCP: Ellen Specialists: None currently Preferred Pharmacy: [facility]-pt to be sent home on Brilinta and provided with Brilinta month free card with instructions, voices understanding. Insurance: MCR A/B, AARP Prescription Benefit: MCR D Living Will/HPOA: Pt states has LW/HPOA and states his /daughter will be bringing them in to copy and place on chart. LNOK: Kamilah Bourgeois, ; Kaushal Valentine, daughter Living Arrangements: Pt states lives with in 1 story home with basement and states no concerns at home. Pt states is independent with ADL's. Transportation: Pt states drives self and states no transportation concerns. DME/HHC: Pt states has grab bars and states no need for any further DME. Pt states no concerns with going home at time of discharge. Pt is retired. Pt states does not smoke cigarettes or drink ETOH. Pt states no further concerns/needs. CM to follow for Brilinta co-pay and any further discharge planning/needs. Advised pt to ask for CM if any further questions/concerns/needs arise, voices understanding. Pt Goal: Home Plan: Home [place] JAVIER MURRY
--- NOTE | 2021-03-30 15:17 | CHAPLAIN ---
Type of Pastoral Visit _x__ Initial Visit ___ Follow-up Visit ___ On-call Visit ___ General Patient Visit ___ Spiritual Assessment ___ Family Conference ___ Bereavement ___ Rapid Response ___ Code Blue ___ Other (describe below) Pastoral Care Referral From _x__ Patient ___ Family ___ Nurse ___ Physician ___ Marine Equipment Sales Engineer ___ Conference Reservationist ___ Other (describe below) Sacrament/Intervention _x__ Active listening ___ Anointing ___ Jain ___ Bereavement ___ Communion ___ Slime exploration ___ _x__ Life review _x__ Prayer ___ Reconciliation ___ Sacrament of Sick _x__ Supportive presence ___ Wedding ___ Other (describe below) Pastoral Comments encounter took place while patient was still in ICU and before transfer to PCU; pt gives life review and many positive comments about excellent care in hospital; pt is open to spiritual care and to emotional support of visit and prayer
[2021-03-30] MEDS: Atorvastatin Calcium 80 MG Tablet PO (21:33)
[2021-03-30] MEDS: MELATONIN 3 MG TABLET PO (22:13)
[2021-03-31] VITALS (7 sets, daily range): BP systolic 129–145; BP diastolic 59–76; PULSE 61–72; RESP 16–57; TEMP 36.3–37.1; O2SAT 93–98
--- NOTE | 2021-03-31 08:38 | PN.CARD_ITS ---
Subjective Subjective Patient seen and evaluated Objective Data Vital Signs: Vital Signs Temp Pulse Resp BP Pulse Ox 97.3 F L 67 16 145/76 H 98 03/31/21 08:32 03/31/21 08:32 03/31/21 08:32 03/31/21 08:32 03/31/21 08:32 Oxygen Flow Rate (L/min) 2 Oxygen Delivery Method Room Air Weight: 181 lb 14.102 oz Body Mass Index (BMI) 30.6 Intake & Output: Intake and Output for Last 24 Hours 03/29/21 03/30/21 03/31/21 23:59 23:59 23:59 Intake Total 2315.70 / 2415.70 1747.77 / 1747.77 Output Total 875 / 875 1300 / 1300 Balance 1440.70 / 1540.70 447.77 / 447.77 Lab / Micro Data Result Diagrams: 03/30/21 03:05 03/30/21 03:05 Cardiology Labs/Tests Rhythm: EKG: ECHO: Stress Test: Cardiac Cath: PCI: CT Surgery: Holter monitor: EPS: PPM: CXR: Chest CT Scan: Radiography Diagnostic Testing: Radiology Impression Echocardiogram 03/30/21 05:55 Interpretation Summary Normal LV size. Left ventricular systolic function is normal. The estimated ejection fraction is 55 %. Infero-Basal: Hypokinetic Stage 2 diastolic dysfunction. Pulmonary artery systolic pressure is 56 mmHg. Moderate pulmonary hypertension. Contrast injection was performed. Ordering Physician: YANCI SANCHEZ Referring Physician: S/P IN Performed By: Holly Morocho, GERALD, RVT Assessment & Plan Assessment/Plan (1) ST elevation (STEMI) myocardial infarction: PLAN: The patient is day 2 status post inferior wall myocardial infarction and stenting of a large dominant right coronary artery. Appears to be doing remarkably well. * Echocardiogram demonstrates preserved left ventricular systolic function. * Will discontinue Integrilin later today as well as IV fluids. * Continue aspirin * Continue ticagrelor * Continue SHERRI inhibitor * Will hold off on beta-rajiv for now * Continue statin * Will follow up as an outpatient * Start cardiac rehabilitation * Thank you for allowing me to participate in the care of your patient. Please don't hesitate to call if any issues arise.
[2021-03-31] MEDS: TICAGRELOR 90 MG TABLET PO (10:10)
[2021-03-31] MEDS: Aspirin 81 MG TAB.CHEW PO (10:10)
[2021-03-31] MEDS: Lisinopril 5 MG Tablet PO (10:10)
--- NOTE | 2021-03-31 10:35 | PCM.DC ---
Discharge Instructions Diet Discharge Diet: Low fat / Low cholesterol Activity Discharge Activity: Return to Normal Activity Dressing / Incision Call your doctor if you observe: Fever of 101 or Higher, Shortness of breath, Dizziness, Swelling in the ankles, Chest pain and Increased palpitations (irregular heartbeat) Follow Up Care Test Results: Test results from this visit will be discussed in further detail at your follow-up appointment, if applicable. Discharge Plan Admission Admit Date/Time: 03/29/21 14:57 Attending Provider: Pedro Mcintyre Primary Care Provider: Nestor Hughes Instructions Patient Instructions: Exercise for a Healthier Heart, Cardiac Rehab Exercise Program, CAD, Cardiac Rehab Getting Started, Exercising After a Heart Attack, Eating Heart-Healthy Foods Discharge Orders/Prescriptions Prescriptions: New aspirin 81 mg Tablet,Chewable 81 mg PO DAILY Qty: 30 RF: 2 atorvastatin 80 mg Tablet 80 mg PO QHS Qty: 30 RF: 2 Brilinta 90 mg Tablet 90 mg PO BID Qty: 60 RF: 1 lisinopril 10 mg tablet 10 mg PO DAILY Qty: 30 RF: 2 Discontinued atenolol 25 mg Tablet 20 mg PO DAILY RF: 0 Referrals / Follow Up: Parker Ruiz MD [STAFF PHYSICIAN] - Within 2 Weeks Nestor Hughes DO [Primary Care Provider] - In 1 Week Care Physician,No Primary [NON-STAFF] - Disposition Disposition (needs filled in before D/C Order can be placed): Home, Self Care
--- NOTE | 2021-03-31 10:49 | PCM.DC.SUM ---
Providers Date of Admission: 03/29/21 Primary Care Physician: Dr. Nestor Hughes DO Reason For Visit: STEMI Diagnosis Discharge Diagnosis (1) ST elevation (STEMI) myocardial infarction: Status: Acute Code(s): I21.3 - ST elevation (STEMI) myocardial infarction of unspecified site Medications at Discharge Home Medications aspirin 81 mg PO DAILY #30 tab 03/31/21 atorvastatin 80 mg PO QHS #30 tab 03/31/21 lisinopril 10 mg PO DAILY #30 tab 03/31/21 ticagrelor [Brilinta] 90 mg PO BID #60 tab 03/31/21 Hospital Course Operations None Procedures 2-D Echocardiogram and Cardiac catheterization Summary of Care Provided Minutes Spent on Discharge: 41 Hospital Course: Per HPI: ANNEMARIE SAMANO, is a 81 M who presents to the hospital with chest pain. It occurred while working in his yard and mowing the lawn. He denies having symptoms like this prior. When he arrived as a STEMI alert he was noticed to be bradycardic with a heart rate in the 40s he had ST elevations in the inferior leads as well as the lateral leads with reciprocal changes in V1 and V2. He was loaded with aspirin as well as heparin and taken straight to [facility] where he was found to have an RCA lesion as well as a mid LAD lesion. He had the RCA lesion stented with a drug-eluting stent. Hospital Course: 1. Inferior lateral STEMI status post cath 03/29/2021/CAD status post stent/[id number]-old male who recently moved to the area was doing yard work when he started having some nausea and chest pain. Presented to the hospital with a STEMI in the inferior lateral leads and taken to [facility] where he received a drug-eluting stent to the RCA. We will continue with Brilinta and aspirin as well as statin. We discontinued his atenolol and changed him to lisinopril and that dose was increased from 5 mg to 10 mg on discharge. He will need to follow-up with cardiology as an outpatient and continue with cardiac rehab. Extensive discussions were had with him on lifestyle modifications going forward as well as the safety with the dual antiplatelet medications and the need to continue this for at least a year. I discussed with him the plan for discharge and he expressed understanding of the risk benefits of going home and would like to go home today. Physical Exam Const alert, oriented x3 and no apparent distress General Appearance: cooperative HEENT normocephalic and moist oral mucous membranes Eyes PERRL, EOMs intact bilaterally and conjunctivae normal Neck supple and no JVD Resp normal respiratory effort, no retractions, no use of accessory muscles and clear to auscultation bilaterally Auscultation: Negative for crackles, rales, rhonchi or wheezes Cardio regular rate, regular rhythm, S1 normal heart sound, S2 normal heart sound and no murmurs GI soft to palpation, non-tender and non-distended; Negative for hepatosplenomegaly Extremity no clubbing, cyanosis or edema Skin no rashes or lesions noted Neuro no focal motor deficits and no sensory deficits noted Psych affect normal Appearance: appropriate Weight / BMI Weight Weight: 181 lb 14.102 oz Body Mass Index (BMI) 30.6 ABG / Lab / Microbiology Data Result Diagrams: 03/30/21 03:05 03/30/21 03:05 Radiography Diagnostic Testing: Radiology Impression Echocardiogram 03/30/21 05:55 Interpretation Summary Normal LV size. Left ventricular systolic function is normal. The estimated ejection fraction is 55 %. Infero-Basal: Hypokinetic Stage 2 diastolic dysfunction. Pulmonary artery systolic pressure is 56 mmHg. Moderate pulmonary hypertension. Contrast injection was performed. Ordering Physician: NESTOR SANCHEZ Referring Physician: S/P AL Performed By: Holly Morocho, GERALD, RVT D/C Instructions Discharge Diet: Low fat / Low cholesterol Call your doctor if you observe: Fever of 101 or Higher, Shortness of breath, Dizziness, Swelling in the ankles, Chest pain and Increased palpitations (irregular heartbeat) Meaningful Use Info Meaningful Use Diagnoses (Choose all that apply): None applicable AMI/Post PCI/Angioplasty Aspirin given w/in 24hrs of arrival?: Yes ASA at discharge?: Yes Statins at discharge?: Yes Joce/ARB at discharge?: Yes Discharge Plan Admission Admit Date/Time: 03/29/21 14:57 Attending Provider: Pedro Mcintyre Primary Care Provider: Nestor Hughes Instructions Patient Instructions: Exercise for a Healthier Heart, Cardiac Rehab Exercise Program, CAD, Cardiac Rehab Getting Started, Exercising After a Heart Attack, Eating Heart-Healthy Foods Discharge Orders/Prescriptions Prescriptions: New aspirin 81 mg Tablet,Chewable 81 mg PO DAILY Qty: 30 RF: 2 atorvastatin 80 mg Tablet 80 mg PO QHS Qty: 30 RF: 2 Brilinta 90 mg Tablet 90 mg PO BID Qty: 60 RF: 1 lisinopril 10 mg tablet 10 mg PO DAILY Qty: 30 RF: 2 Discontinued atenolol 25 mg Tablet 20 mg PO DAILY RF: 0 Referrals / Follow Up: Parker Ruiz MD [STAFF PHYSICIAN] - Within 2 Weeks Nestor Hughes DO [Primary Care Provider] - In 1 Week Care Physician,No Primary [NON-STAFF] - Disposition Disposition (needs filled in before D/C Order can be placed): Home, Self Care Charges/Coding Visit Charges Inpatient E&M: 99384 Disch Hosp
--- NOTE | 2021-03-31 11:36 | PHA.DC.MC ---
Pharmacy Service has performed discharge medication reconciliation and counseling for this patient. The patient was counseled on the following discharge medications and changes in medications for homegoing were reviewed. 1. ASPIRIN 2. BRILINTA 3. LIPITOR 4. LISINOPRIL The Reason for Use, instructions for use, and potential side effects were reviewed for all new medications. The patient's questions regarding all of their medications were answered. The patient was able to verbally demonstrate an understanding of their discharge medications. Home Medications aspirin 81 mg PO DAILY #30 tab 03/31/21 atorvastatin 80 mg PO QHS #30 tab 03/31/21 lisinopril 10 mg PO DAILY #30 tab 03/31/21 ticagrelor [Brilinta] 90 mg PO BID #60 tab 03/31/21 The patient's discharge medication list was reviewed for discrepancies and discrepancies were resolved.
== END 2021-03-31 13:33 | disposition home or self-care (01) | DRG 247 ==
LOC: ED 09:50 → ICU 12:44 → PCU 03-30 14:24
PROVIDERS: Admitting Provider Internal Medicine Interventional Cardiology; Emergency Provider Emergency Medicine; PCP Family Medicine; Referring Provider Internal Medicine Interventional Cardiology; Visit Provider Family Medicine
DX: I21.19 ST elevation (STEMI) myocardial infarction involving other coronary artery of inferior wall (principal); I10 Essential (primary) hypertension; Z79.899 Other long term (current) drug therapy; Z85.46 Personal history of malignant neoplasm of prostate; I25.10 Atherosclerotic heart disease of native coronary artery without angina pectoris; Z95.5 Presence of coronary angioplasty implant and graft
CPT/HCPCS: 71045; 80048; 84484; 85025; 85027; 85610; 85730; 92928; 93005; 93306; 93458; 99152; 99153; 99283; C1874; J7030; J7040; Q9957; Q9967; A4216; C1725; C1760; C1769; C1887; C1894; C8929; C9600; J1327; J2405; J3490

== ENCOUNTER → 2021-04-20 09:19 | Outpatient (CLI) | payer MEDICARE, OTHER, SELFPAY ==
[2021-04-12 08:18] VITALS: BMI 29.5
--- NOTE | 2021-04-20 09:30 | CR.HP_ITS ---
CR - History & Physical - General Arrival date:: 04/20/21 Arrival time:: 09:31 Date of Referral:: 03/31/21 Date of CR Evaluation:: 04/20/21 Referring Physician: Dr. Parker Ruiz Primary Diagnosis: AMI (STEMI) PCI w/coronary stenting - History of Present Cardiac Event Onset Date: Enter Onset Date of cardiac illnesses in Comment field below Acute Myocardial Infarction within 12 months:: Yes - STEMI 03/31/2021 PTCA or coronary stenting:: Yes - 03/31/2021 Type of Symptoms:: Presented to the emergency room with chest pain. Patient was mowing his lawn and began experiencing chest pain, very nauseated, acute sweating. He called EMS. Interventions with present event:: Emergency heart cath / PCI intervention Were there any complications?: None - Sleep Disorder Evaluation Hx of Sleep Apnea: No Do you snore loudly (louder than talking or can be heard through closed doors)?: Yes Do you often feel tired/ fatigued/ sleepy during daytime?: No Has anyone observed you stop breathing during sleep?: No History of Hypertension (for STOP score): Yes STOP Results: Positive - Medications Home Medications: Ambulatory Orders Medication Instructions Recorded aspirin 81 mg PO DAILY #30 tab 03/31/21 atorvastatin 80 mg tablet 80 mg PO QHS #90 tab 04/12/21 losartan 50 mg tablet 50 mg PO DAILY #90 tab 04/12/21 ticagrelor 90 mg tablet 90 mg PO BID #180 tab 04/12/21 - Allergies Allergies/Adverse Reactions: Allergies Sulfa (Sulfonamide Antibiotics) Allergy (Verified 04/12/21 08:35) PT UNSURE OF REACTION Advanced Directives - Advanced Directives Living Will: Yes Advance Directives Information Provided: No Advance Directives on File: Yes DNR Order?:: No - MOLST See MOLST form: No Past Medical History - Covid-19 Screening Fever: No Unexplained muscle aches: No Current respiratory symptoms: No Upper respiratory infections symptoms: No Gastro-intestinal symptoms: No Wdp-Spog-Sglbat symptoms: No Has tested positive for COVID-19 in last 30 days: No Date of testin12/09/19 - Pfizer vaccine received in [place] Had contact w/person w/symptoms or Covid-19 (+) last 14 days: No Has High Risk Exposures ID'd by Health dept/Inf Control team: No 65 years or older:: Yes Lives in Assisted Living facility:: No Has a chronic lung disease or moderate to severe asthma:: No Has a serious heart condition:: No Immunocompromised:: No Severely obese (Body Mass Index of 40 or higher):: No Diabetic:: No Has chronic kidney disease undergoing dialysis:: No Has liver disease:: No - Past Medical Illness Medical History: Past Medical History (Last Reviewed 04/12/21 @ 09:[address] 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 Parker Ruiz MD) History of coronary artery stent placement Onset Date: 03/29/21 Z95.5 [id number]-[id number]-Prim RCA w/ 4 x 26 mm Orsiro Stent 03/29/21 Status post inguinal hernia repair Z98.890, Z87.19 - Family History Summary Family History: Family History (Last Reviewed 04/12/21 @ 09:[address] Parker Ruiz MD) Father Cancer Mother Heart disease Social History - Smoking History Smoking Status: Never smoker Hx Tobacco Use: No Hx Smoking Exposure: No - Alcohol Use Alcohol Usage: No - Substance Abuse Hx Substance Use: No - Occupation Occupation (List type of work in comments):: Retired - Hobbies, Recreation, Social Activities Hobbies: Sports - a little golf now and then, Hiking, Walking, Exercise - yard work. , Other - vacation in [place], Recreational Activities: I am able to engage in a few activities Social Environment - Status Marital Status: - Current Living Arrangements Living Environment:: Spouse - Children How many children do you have?: 2 Do any of your children live nearby?: No - Daughter [place] in [place], son is in [place], [place] - Safety Do you feel safe in your surroundings?: Yes - Assistance Do you need any assistance at home?: no Review of Systems - Review of Systems Hints: Right click = Denies ([place]ash). Left click = Reports ([place]) Review of Present Symptoms: Reports: Shortness of Breath with Exertion - Sometimes a little short of breath but relates it to being 81 years old., Heart Arrhythmia/Irregularities - 1st degree AV block with occasional PVCs., Appetite - Normal, Sleep - Normal - sleeping okay, takes aout an hour to fall asleep.. Denies: Angina, Dizziness/Lightheadedness - Pain Is Patient Pain Free?: Yes Pain Location: none Pain Level: 0/10 Risk Factor Assessment - Chief Complaint Chief Complaint: Patient isan very pleasant 81 [address] Ruiz [facility] with stent placement. - Vital Signs Temperature: 97.3 F Respiratory Rate: 16 Pulse Ox: 96 Blood Pressure: 110/70 - Pulse Pulse Rate: 88 Pulse Rhythm: Regular - Hypertension How long have you been treated?: just recent Blood Pressure Sitting - Left Arm: 110/70 - Blood Cholesterol/Lipids Total Cholesterol (mg/dL) Goal = less than 200 mg/dL: 0 - no lipid profile av ailable - Obesity Height: 5 ft 5 in Weight:: 177 lb Weight in Pounds: 177.0 lbs Weight Source: Acute Hospital Body Mass Index (BMI): 29.4 Nutritional Referral for Obesity: Yes - Physical Inactivity Physical Inactivity: Reg Exercise 30 min/day - Risk Stratification Risk Guidelines: Lowest Risk: Risk Factor for Smoking, Risk Factor for Dyslipidemia, Risk Factor for Diabetes, Risk Factor for Hypertension, Risk Factor for Sedentary Lifestyle, Risk Factor for Depression, Highest Risk: Risk Factor for Obesity - Family History Family History: Family History (Last Reviewed 04/12/21 @ 09:[address] Parker Ruiz MD) Father Cancer Mother Heart disease Motivation - Motivation to Participate On a scale of 1 to 10, how prepared are you to commit to attending program?: 10 - fully ready What do you see as barriers to successfully being able to complete the program?: none What do you see as the benefits of succesfully completing the program? In other words, what do you hope to get out of participating in the program?: want to learn what I can do, get healthier learn more about heart disease. Are there issues you are dealing with that will interfere with completing the program?: none Do you have a spouse or signficant other, family or friends who will help support you to complete the program?: Yes. and children very supportive.
--- NOTE | 2021-04-20 09:30 | PCM.CR.ITP ---
Diagnosis - General Information Admitting Diagnosis: STEMI, PCI w/coronary stenting Personal Learning Style:: Audio/Visual, Written Barriers to Learning: Hearing Impairment, Vision Impairment Stage of change r/t lifestyle modifications:: Action Gave educational material for:: Treating Heart Disease, Emotions & Heart Disease, Stress Management & Relaxation, Sleep Disorders & Heart Disease, How The Heart Works, What it means to have Heart Disease, How Coronary Artery Disease is Diagnosed, Heart Procedures, What Heart Medications Do, Risk Factors & Modifications, Living an Active Life, Nutrition - Education/Goals Individual Counseling: Initial Assessment: Abnormal Cholesterol Levels, High Blood Pressure, Overweight/Obesity Cardiac Rehabilitation Goals: 1. Maintain the individual as the primary focus of care. 2. To improve the patient's quality of life. 3. Identification of cardiac risk factors and provide cardiac risk factor management. 4. Enhance the psychosocial status of the patient. 5. Reconditioning enough to allow the patient to resume customary activities. 6. Control symptoms of cardiac disease Personal Goals: Initial Assessment: Improve management of stress and emotions, Improve energy level, Get back to work, or to resume activities faster, Improve knowledge of cardiac disease, Improve muscle strength and endurance, Improve diet and eating habits (eat healthier), Control risk factors (learn risk factor modification), Other goal: - Learn what my physical limits are. Scale for measuring improvement of personal goals: Enter appropriate number in Comments. 2 = Unchanged. 3 = Slightly Better. 4 = Moderate Improvement. 5 = Met my Goal - Diagnosis & Disease Process Outcomes/Goals: Pt IDs own risk factors & lifestyle modifications by Session 10, Verbalizes symptoms of angina & response by session 3., Pt independently manages Plan/Interventions: Assist Pt to ID & engage in lifestyle modification to reduce CVD risk, Instruct on individual risk factors, Review symptoms of angina & emergency actions, Review secondary diagnosis & identify educational needs. - Safety Referral to Physical Therapy: No Referral to [facility] Case Management: No Fall Risk Assessed:: Yes Assistive Devices:: None Exercise - Initial Assessment - Visit Date of Eval: 04/20/21 Session #:: 0 - pre-cardiac rehab evaluation Mets: Pre-: >5 METS for 30 minutes by discharge - Physician Prescribed Exercise Modalities: Treadmill, Airdyne, NuStep Frequency: 3x/week for 12 weeks [36 sessions] Intensity: 60-80% of age predicted maximum heart rate reserve Current METSs:: 3.0 Target Heart Rate:: 90-117 Resting Blood Pressure: 110/70 EKG Type: Sinus bradycardiac W/ 1st degree AV boc, occasional PVCs. Current Physical Activity or Exercising minutes: 30+ minutes daily walking - Outcomes & Goals Goals:: Verbalizes understanding of THR, RPE & goal METS by session 6, Documents in home exercise log/reports 30 min aerobic 5 day/wk by DC, Demonstrates accurate pulse taking by DC - Intervention & Plan Exercise Program Goals: Instruct on personal THR & RPE, Instruct on MET level & personal MET goal, Show patient to take own pulse /validate performance until accurate, Instruct on home exercise - Physical Activity Home Exercise Physical Activity - Home Exercise: Safe Exercise, Warm-up, Self-monitoring, Cool-Down, Home Exercise > 30 min Daily, Sitting Time <3 hours/daily - Outcomes & Goals Outcomes/Goals: Demonstrates correct Warm-up/exercise Cool-Down (S3) if = 2.5 METs, Verbalizes symptoms of exercise intolerance by Session 3 (S3), Demonstrate safe equipment use (S3) & follows exercise prescrition (6) - Intervention & Plan Plan/Intervention: Instruct warm-up & cool-down if exercising at > 2 METs, Instruct on symptoms of exercise intolerance & actions to take, Instruct & monitor on saf, Assess intial functional capacity & safety risk Nutrition - Initial Assessment - Program Goals Nutrition Program Goals: LDL <100 optimal. 100 - 129 Near optimal. 130 - 159 Borderline High. 160 - 189 High. Total Cholesterol <200 desirable. 200 - 239 Borderline High. >/= 240 High. HDL < 40 Low >/=60 High. Triglycerides <150 desirable. <199 optimal. VlDL 5 - 40. HgbA1C <7%. BMI <25 Patient has diagnosis of Hyperlipidemia (ICD E78)?: Yes - Visit Date of Assessment:: 04/20/21 Session #:: 0 - pre-cardiac rehab evaluation - Cholesterol/Lipids Triglycerides (mg/dL): 0 - No lipid profile available Determine presence & major risk factors that modify LDL goal: Hypertension or hypertensive medication, Family history of premature CHD in Male < 55 years: female <65 yearsFa, Age men > 45 years; women >/= 55 years Outcomes/Goals: Pt IDs own risk factors & lifestyle modifications by Session 10, Verbalizes symptoms of angina & response by session 3., Pt independently manages Intervention/Plan: Instruct on personal lipid levels & lipid goals/NCEP guidelines, Instruct on cholesterol Referral to dietitian:: Yes - Medical Nutrition Therapy - Diabetes (Other Core Measures) Diabetes Type: Not Applicable - Weight Mgt (Other Care) Not Applicable: No Height: 5 ft 5 in Weight:: 177 lb BMI: 29.4 Diagnosis Overweight/Obesity BMI> 30% ICD-10 E66: Yes Diagnosis High BMI/Morbid Obesity BMI> 35% ICD-10 Z68: No Outcomes/Goals: Pt sets, maintains & shows weight loss goal & trend during rehab Intervention/Plan: Instruct on ideal BMI & set weight loss goal w/patient, Assist pt to ID & incorporate diet changes for weight loss by S9, Refer to Structured Weight Loss program as appropriate - Healthy Eating Habits Will attend diet classes:: Yes Outcomes/Goals:: Consume diet rich in vegs,fruits,whole grain/high fiber,fish,lean meat, Limit sat/trans fats,cholesterol & added salts & sugars Intervention/Plan:: Assess current eating habits Nutrition - 30-Day Assessment Nutrition - 60-Day Assessment Nutrition - 90-Day Assessment Nutrition - Final Assessment Medical - Initial Assessment - Visit Date of Eval: 04/20/21 Session #:: 0 - pre-cardiac rehab evaluation - Medication Compliance Preventative Medication(s):: Aspirin, Ticagrelor/P2Y12 inhibitor, Statin/lipid H/O mental health issues: depression, anxiety, or addiction?: No Doesn?t believe in the benefits of treatment?: No Believes medications are unnecessary or harmful?: No Has a concern about medication side effects?: No Expresses concern over the cost of medications?: No Outcomes/Goals: Verbalizes medications,desired effect & common side effects @ DC, Pt self-reports following medication regimen, Keeps card in wallet w/medications listed by DC Interventions/plans: Instruct on medication effects & side effects, Review medication list w/patient every two weeks, Instruct importance of taking meds as ordered & assist problem solving - Tobacco Use Tobacco Use: Non-smoker - Hypertension Hypertension Diagnosis:: Hypertension ICD-10 I10 Resting Blood Pressure:: 110/70 [place] [employer] Hypertension Guidelines: [place] [employer] Hypertension Guidelines. Normal BP Less than 120/80. Elevated BP 120/80. Hypertension Stage 1: BP 130-139/80-89. Hypertesnion Stage 2: BP 140 or higher/90 or higher. Hypertension Crisis: BP higher than 180/120 Outcomes/Goals: Able to verbalize/achieve optimal blood pressure <130/80, Incorporates diet changes & exercise for blood pressure control by DC Interventions/plan: Instruct on optimal blood pressure, hypertension & medications, Instruct on effects of sodium, alcohol, stress, exercise &hypertension - Tobacco Cessation Referral Smoking Cessation Referral:: No Individual Education/Counseling:: No Education Schedule Given:: Yes - Online Education information preseted to patient Medical- 30-Day Assessment Medical- 60-Day Assessment Medical- 90-Day Assessment Medical - Final Assessment Psychosocial - Initial Assess - VIsit Date of Eval: 04/20/21 Session #:: 0 - PRe-cardiac rehab evaluation Not Applicable: Yes History of previous Mental disease:: No - Psychosocial Test Tool Used:: [employer] QOL Cardiac, PHQ-9 Questionnaire phq-9 Severity: Severity. 1-4 Minimal Depression. 5-9 Mild Depression. 10-14 Moderate Depression. 15-19 Moderately Sever Depression. 20-27 Severe Depression. Rule: - Referral to Behavioral Health PS - Interventions: Yes Attend Stress Management Classes, No Referral to Behavioral Health if PHQ-9 score >9:, No Referral to [facility], No Referral to Physician if PHQ-9 if score is 5-9: - Outcomes/Goals: See list Psychosocial Outcomes/Goals:: ID's personal stressors & 2 strategies to manage stress by discharge - Intervention/Plan: See List Interventions/Plan:: Assess stressors,coping strategies & signs of derpression on admission, Instruct/assist pt to develop coping & personal stress Mgt strategies, Instruct patient to recognize signs & symptoms of depression, Instruct patient to recog Psychosocial - 30-Day Assess Psychosocial - 60-Day Assess Psychosocial - 90-Day Assess Psychosocial - Final Assessmen Patient Health Questionnaire Initial Assessment 1. Little interest or pleasure in doing things: Not at all 2. Feeling down, depressed, or hopeless: Not at all 3. Trouble falling or staying asleep, or sleeping too much: Not at all 4. Feeling tired or having little energy: Several days 5. Poor appetite or overeating: Several days 6. Feeling bad about yourself -- or that you are a failure or have let yourself or your family down: Not at all 7. Trouble concentrating on things, such as reading the newspaper or watching television: Not at all 8. Moving or speaking so slowly that other people could have noticed. Or the opposite - being so fidgety or restless that you have been moving around a lot more than usual: Several days 9. Thoughts that you would be better off , or of hurting yourself in some way: Not at all How difficult have these problems made it for you to do your work, take care of things at home, or get along with other people?: Not difficult at all Total Score: 3 BONNIE-Q SV Test - Statements CAD is a disease of the arteries in the heart: False Examples of risk factors for heart disease: True Angina is chest pain or discomfort: True The benefits of resistance training include: True Eating more meat and dairy products: False Anti-platelet medications such as aspirin are important: True The only effective way to manage stress: False An exercise warm-up slowly increases heart rate: True Prepared, processed foods usually have high sodium: True Depression is common after a heart attack: True The statin medications lower cholesterol: True To control blood pressure, lower the amount of sodium: True If someone gets chest discomfort during walking: False Transfats are partially hydrogenated vegetable oils: True Sleep apnea that is not treated increases the risk: False To control cholesterol, one should become a vegetarian: False Someone knows if he/she is exercising at the right level: True Diabetes cannot be prevented with exercise & health eating: True Stress is a large risk for heart attack: True A diet that can help lower blood pressure is rich in: True - Total Score Total Correct Responses: 19 Self-Efficacy Initial Assessment We would like to know how confident you are in doing certain activities. Please select your confidence level for:: Select your confidence level for the following using the scale 1-10 where 1 is not at all confident and 10 is totally confident. Your score is the average of all 6 responses. Fatigue: How confident are you that you can keep the fatigue caused by your disease from interfering with the things you want to do? Select Number: 8 Physical Discomfort or Pain: How confident are you that you can keep the physical discomfort or pain of your disease from interfering with the things you want to do? Select Number: 9 Emotional Distress: How confident are you that you can keep the emotional distress caused by your disease from interfering with the things you want to do? Select Number: 8 Other Symptoms or Health Problems: How confident are you that you can keep other symptoms or health problems from interfering with the things you want to do? Select Number: 8 Different Tasks and Activities: How confident are you that you can do the different tasks and activities needed to manage your health condition so as to reduce your need to see a doctor? Select Number: 9 Medication: How confident are you that you can do things other than just taking medication to reduce how much your illness affects your everyday life? Select Number: 9 Total Score:: 8 Nutrition Survey - Nutrition Survey Initial Have you lost >10 lbs over the past 2 months without trying?: No Are you following a special diet at home for diabetes, low fat, or low salt?: Yes Are you interested in meeting with a dietitian for help understanding your diet?: Yes Do you eat less than 3 meals a day?: No Do you eat fatty meats (esparza, sausage, ribs, etc), fried foods, desserts, large amounts of salad dressings, margarine, butter, or cheese most days?: No Do you have food allergies? [Enter types in comment field]: No Do you eat in restaurants more than 3 times a week?: No Do you season food with salt, seasoning salt, or garlic salt?: No Do you used canned, boxed, frozen meals, or soups, seasoning packets?: Yes Total Score:: 3
[2021-04-20 09:52] VITALS: BP 110/70; BMI 29.4
[2021-04-20 10:08] VITALS: BP 110/70; PULSE 88; RESP 16; TEMP 36.3; O2SAT 96; BMI 29.4
== END ==
PROVIDERS: PCP Family Medicine; Referring Provider Internal Medicine Cardiovascular Disease; Visit Provider Internal Medicine Cardiovascular Disease
DX: I10 Essential (primary) hypertension (principal); I25.2 Old myocardial infarction; E66.9 Obesity, unspecified; Z95.5 Presence of coronary angioplasty implant and graft; Z68.29 Body mass index [BMI] 29.0-29.9, adult

== ENCOUNTER 2021-05-22 10:30 | Outpatient (RCR) | payer MEDICARE, OTHER, SELFPAY ==
[2021-04-20 09:52] VITALS: BMI 29.4
[2021-04-20 10:08] VITALS: BMI 29.4
== END 2021-05-23 23:59 ==
LOC: CR 10:30
PROVIDERS: PCP Family Medicine; Referring Provider Internal Medicine Cardiovascular Disease; Visit Provider Internal Medicine Cardiovascular Disease
DX: I25.10 Atherosclerotic heart disease of native coronary artery without angina pectoris (principal); Z95.5 Presence of coronary angioplasty implant and graft; I21.3 ST elevation (STEMI) myocardial infarction of unspecified site; I77.810 Thoracic aortic ectasia; I11.9 Hypertensive heart disease without heart failure; I27.21 Secondary pulmonary arterial hypertension
CPT/HCPCS: 93798

== ENCOUNTER 2021-06-21 10:30 | Outpatient (RCR) | payer MEDICARE, OTHER, SELFPAY ==
[2021-04-20 09:52] VITALS: BMI 29.4
[2021-05-24 00:18] VITALS: BMI 29.4
--- NOTE | 2021-05-31 08:18 | PCM.CR.ITP ---
Diagnosis Exercise - 30-day Assessment - Visit Date of Eval: 05/31/21 Session #:: 14 - Physician Prescribed Exercise Modalities: Treadmill, Airdyne, NuStep Frequency: 3x/week for 12 weeks [36 sessions] Intensity: 60-80% of age predicted maximum heart rate reserve Current METSs:: 4.0 increase from 3.0 Target Heart Rate:: 90-117 Current RPE:: 12-13 Resting Blood Pressure: 120/64 Maximum Exercise Blood Pressure: 132/54 - Outcomes & Goals Goals:: Verbalizes understanding of THR, RPE & goal METS by session 6, Documents in home exercise log/reports 30 min aerobic 5 day/wk by DC, Demonstrates accurate pulse taking by DC - Intervention & Plan Exercise Program Goals: Instruct on personal THR & RPE, Instruct on MET level & personal MET goal, Show patient to take own pulse /validate performance until accurate, Instruct on home exercise - 30-day Reassessments 30 day Reassessments:: Met - Physical Activity Home Exercise Physical Activity - Home Exercise: Safe Exercise, Warm-up, Self-monitoring, Cool-Down, Home Exercise > 30 min Daily, Sitting Time <3 hours/daily - Outcomes & Goals Outcomes/Goals: Demonstrates correct Warm-up/exercise Cool-Down (S3) if = 2.5 METs, Verbalizes symptoms of exercise intolerance by Session 3 (S3), Demonstrate safe equipment use (S3) & follows exercise prescrition (6) - Intervention & Plan Plan/Intervention: Instruct warm-up & cool-down if exercising at > 2 METs, Instruct on symptoms of exercise intolerance & actions to take, Instruct & monitor on saf, Assess intial functional capacity & safety risk - 30-day Reassessments 30 day Reassessments:: Progressing Nutrition - Initial Assessment Nutrition - 30-Day Assessment - Program Goals Nutrition Program Goals: LDL <100 optimal. 100 - 129 Near optimal. 130 - 159 Borderline High. 160 - 189 High. Total Cholesterol <200 desirable. 200 - 239 Borderline High. >/= 240 High. HDL < 40 Low >/=60 High. Triglycerides <150 desirable. <199 optimal. VlDL 5 - 40. HgbA1C <7%. BMI <25 Patient has diagnosis of Hyperlipidemia (ICD E78)?: Yes - Visit Date of Assessment:: 05/31/21 Session #:: 14 - - Cholesterol/Lipids Triglycerides (mg/dL): 0 - not available Determine presence & major risk factors that modify LDL goal: Hypertension or hypertensive medication, Age men > 45 years; women >/= 55 years Outcomes/Goals: Pt IDs own risk factors & lifestyle modifications by Session 10, Verbalizes symptoms of angina & response by session 3., Pt independently manages Intervention/Plan: Instruct on personal lipid levels & lipid goals/NCEP guidelines, Instruct on cholesterol Referral to dietitian:: Yes - Medical Nutrition Therapy 30-day Reassessments:: Progressing - Diabetes (Other Core Measures) Diabetes Type: Not Applicable - Weight Mgt (Other Care) Height: 5 ft 5 in Weight:: 171 lb - down 6 pounds ! BMI: 28.4 Diagnosis Overweight/Obesity BMI> 30% ICD-10 E66: No Diagnosis High BMI/Morbid Obesity BMI> 35% ICD-10 Z68: No Outcomes/Goals: Pt sets, maintains & shows weight loss goal & trend during rehab Intervention/Plan: Instruct on ideal BMI & set weight loss goal w/patient, Assist pt to ID & incorporate diet changes for weight loss by S9, Encourage goal of using 250-300dcal per session for weight loss 30 day Reassessments:: Progressing - Healthy Eating Habits Will attend diet classes:: Yes Outcomes/Goals:: Consume diet rich in vegs,fruits,whole grain/high fiber,fish,lean meat, Limit sat/trans fats,cholesterol & added salts & sugars Intervention/Plan:: Assess current eating habits 30-day Reassessments:: Met Nutrition - 60-Day Assessment Nutrition - 90-Day Assessment Nutrition - Final Assessment Medical - Initial Assessment Medical- 30-Day Assessment - Visit Date of Eval: 05/31/21 Session #:: 14 - Medication Compliance Preventative Medication(s):: Aspirin, Ticagrelor/P2Y12 inhibitor, Statin/lipid H/O mental health issues: depression, anxiety, or addiction?: No Doesn?t believe in the benefits of treatment?: No Believes medications are unnecessary or harmful?: No Has a concern about medication side effects?: No Expresses concern over the cost of medications?: No Outcomes/Goals: Verbalizes medications,desired effect & common side effects @ DC, Pt self-reports following medication regimen, Keeps card in wallet w/medications listed by DC Interventions/plans: Instruct on medication effects & side effects, Review medication list w/patient every two weeks, Instruct importance of taking meds as ordered & assist problem solving 30-day Reassessments:: Met - Tobacco Use Tobacco Use: Non-smoker - Hypertension Hypertension Diagnosis:: Hypertension ICD-10 I10 Resting Blood Pressure:: 120/60 [place] [employer] Hypertension Guidelines: [place] [employer] Hypertension Guidelines. Normal BP Less than 120/80. Elevated BP 120/80. Hypertension Stage 1: BP 130-139/80-89. Hypertesnion Stage 2: BP 140 or higher/90 or higher. Hypertension Crisis: BP higher than 180/120 Peak Exercise Blood Pressure:: 132/54 Outcomes/Goals: Able to verbalize/achieve optimal blood pressure <130/80, Incorporates diet changes & exercise for blood pressure control by DC Interventions/plan: Instruct on optimal blood pressure, hypertension & medications, Instruct on effects of sodium, alcohol, stress, exercise &hypertension 30 day Reassessments:: Progressing - Tobacco Cessation Referral Smoking Cessation Referral:: No Individual Education/Counseling:: No Education Schedule Given:: Yes - [employer] and [employer] Online education resources Medical- 60-Day Assessment Medical- 90-Day Assessment Medical - Final Assessment Psychosocial - Initial Assess Psychosocial - 30-Day Assess - VIsit Date of Eval: 05/31/21 Session #:: 14 Not Applicable: Yes History of previous Mental disease:: No - Psychosocial Test Tool Used:: PHQ-9 Questionnaire phq-9 Severity: Severity. 1-4 Minimal Depression. 5-9 Mild Depression. 10-14 Moderate Depression. 15-19 Moderately Sever Depression. 20-27 Severe Depression. Rule: - Referral to Behavioral Health PS - Interventions: Yes Attend Stress Management Classes, No Referral to Behavioral Health if PHQ-9 score >9:, No Referral to [facility], No Referral to Physician if PHQ-9 if score is 5-9: - Outcomes/Goals: See list Psychosocial Outcomes/Goals:: ID's personal stressors & 2 strategies to manage stress by discharge - Intervention/Plan: See List Interventions/Plan:: Assess stressors,coping strategies & signs of derpression on admission, Instruct/assist pt to develop coping & personal stress Mgt strategies, Instruct patient to recognize signs & symptoms of depression, Instruct patient to recog - 30-day Reassessments: 30 day Reassessments:: Progressing Psychosocial - 60-Day Assess Psychosocial - 90-Day Assess Psychosocial - Final Assessmen Patient Health Questionnaire 30-Day Re-eval Assessment 1. Little interest or pleasure in doing things: Not at all 2. Feeling down, depressed, or hopeless: Not at all 3. Trouble falling or staying asleep, or sleeping too much: Not at all 4. Feeling tired or having little energy: Several days 5. Poor appetite or overeating: Not at all 6. Feeling bad about yourself -- or that you are a failure or have let yourself or your family down: Not at all 7. Trouble concentrating on things, such as reading the newspaper or watching television: Not at all 8. Moving or speaking so slowly that other people could have noticed. Or the opposite - being so fidgety or restless that you have been moving around a lot more than usual: Several days 9. Thoughts that you would be better off , or of hurting yourself in some way: Not at all How difficult have these problems made it for you to do your work, take care of things at home, or get along with other people?: Not difficult at all Total Score: 2 Self-Efficacy 30-Day Re-eval Assessment We would like to know how confident you are in doing certain activities. Please select your confidence level for:: Select your confidence level for the following using the scale 1-10 where 1 is not at all confident and 10 is totally confident. Your score is the average of all 6 responses. Fatigue: How confident are you that you can keep the fatigue caused by your disease from interfering with the things you want to do? Select Number: 8 Physical Discomfort or Pain: How confident are you that you can keep the physical discomfort or pain of your disease from interfering with the things you want to do? Select Number: 9 Emotional Distress: How confident are you that you can keep the emotional distress caused by your disease from interfering with the things you want to do? Select Number: 9 Other Symptoms or Health Problems: How confident are you that you can keep other symptoms or health problems from interfering with the things you want to do? Select Number: 9 Different Tasks and Activities: How confident are you that you can do the different tasks and activities needed to manage your health condition so as to reduce your need to see a doctor? Select Number: 9 Medication: How confident are you that you can do things other than just taking medication to reduce how much your illness affects your everyday life? Select Number: 9 Total Score:: 8 Nutrition Survey
[2021-05-31 08:29] VITALS: BP 120/60; BP 120/64; BP 132/54; BMI 28.4
--- NOTE | 2021-06-21 11:03 | PCM.CR.ITP ---
Diagnosis Exercise - 60-day Assessment - Visit Date of Eval: 06/21/21 Session #:: 24 - Physician Prescribed Exercise Modalities: Treadmill, Airdyne, NuStep Frequency: 3x/week for 12 weeks [36 sessions] Intensity: 60-80% of age predicted maximum heart rate reserve Current METSs:: 4.0 Target Heart Rate:: 90-117 Current RPE:: 13-14 Maximum Excercise HR:: 107 Resting Blood Pressure: 112/52 Maximum Exercise Blood Pressure: 140/58 EKG Type: Sinus rhythm to sinus tach with rare PACs Current Physical Activity or Exercising minutes: 45 - Outcomes & Goals Goals:: Verbalizes understanding of THR, RPE & goal METS by session 6, Documents in home exercise log/reports 30 min aerobic 5 day/wk by DC, Demonstrates accurate pulse taking by DC - Intervention & Plan Exercise Program Goals: Instruct on personal THR & RPE, Instruct on MET level & personal MET goal, Show patient to take own pulse /validate performance until accurate - 30-day Reassessments 30 day Reassessments:: Progressing - Physical Activity Home Exercise Physical Activity - Home Exercise: Safe Exercise, Warm-up, Self-monitoring, Cool-Down, Home Exercise > 30 min Daily, Sitting Time <3 hours/daily - Outcomes & Goals Outcomes/Goals: Demonstrates correct Warm-up/exercise Cool-Down (S3) if = 2.5 METs, Verbalizes symptoms of exercise intolerance by Session 3 (S3), Demonstrate safe equipment use (S3) & follows exercise prescrition (6) - Intervention & Plan Plan/Intervention: Instruct warm-up & cool-down if exercising at > 2 METs, Instruct on symptoms of exercise intolerance & actions to take, Instruct & monitor on saf, Assess intial functional capacity & safety risk - 30-day Reassessments 30 day Reassessments:: Met Nutrition - Initial Assessment Nutrition - 30-Day Assessment Nutrition - 60-Day Assessment - Program Goals Nutrition Program Goals: LDL <100 optimal. 100 - 129 Near optimal. 130 - 159 Borderline High. 160 - 189 High. Total Cholesterol <200 desirable. 200 - 239 Borderline High. >/= 240 High. HDL < 40 Low >/=60 High. Triglycerides <150 desirable. <199 optimal. VlDL 5 - 40. HgbA1C <7%. BMI <25 Patient has diagnosis of Hyperlipidemia (ICD E78)?: Yes - Visit Date of Assessment:: 06/21/21 Session #:: 24 - Cholesterol/Lipids Determine presence & major risk factors that modify LDL goal: Hypertension or hypertensive medication Outcomes/Goals: Pt IDs own risk factors & lifestyle modifications by Session 10, Verbalizes symptoms of angina & response by session 3., Pt independently manages Intervention/Plan: Instruct on personal lipid levels & lipid goals/NCEP guidelines, Instruct on cholesterol Referral to dietitian:: Yes - Medical nutrition therapy 30-day Reassessments:: Progressing - Diabetes (Other Core Measures) Diabetes Type: Not Applicable - Weight Mgt (Other Care) Not Applicable: Yes Height: 5 ft 5 in Weight:: 169 lb BMI: 28.1 Diagnosis Overweight/Obesity BMI> 30% ICD-10 E66: No Diagnosis High BMI/Morbid Obesity BMI> 35% ICD-10 Z68: No Outcomes/Goals: Pt sets, maintains & shows weight loss goal & trend during rehab Intervention/Plan: Instruct on ideal BMI & set weight loss goal w/patient - Healthy Eating Habits Will attend diet classes:: Yes Outcomes/Goals:: Consume diet rich in vegs,fruits,whole grain/high fiber,fish,lean meat, Limit sat/trans fats,cholesterol & added salts & sugars Intervention/Plan:: Assess current eating habits 30-day Reassessments:: Progressing - Education Gave educational materials for:: Healthy eating Nutrition - 90-Day Assessment Nutrition - Final Assessment Medical - Initial Assessment Medical- 30-Day Assessment Medical- 60-Day Assessment - Visit Date of Eval: 06/21/21 Session #:: 24 - Medication Compliance Preventative Medication(s):: Aspirin, Ticagrelor/P2Y12 inhibitor, Statin/lipid H/O mental health issues: depression, anxiety, or addiction?: No Doesn?t believe in the benefits of treatment?: No Believes medications are unnecessary or harmful?: No Has a concern about medication side effects?: No Expresses concern over the cost of medications?: No Outcomes/Goals: Verbalizes medications,desired effect & common side effects @ DC, Pt self-reports following medication regimen, Keeps card in wallet w/medications listed by DC Interventions/plans: Instruct on medication effects & side effects, Review medication list w/patient every two weeks, Instruct importance of taking meds as ordered & assist problem solving 30-day Reassessments:: Progressing - Tobacco Use Tobacco Use: Non-smoker - Hypertension Hypertension Diagnosis:: Hypertension ICD-10 I10 Resting Blood Pressure:: 112/52 [place] [employer] Hypertension Guidelines: [place] [employer] Hypertension Guidelines. Normal BP Less than 120/80. Elevated BP 120/80. Hypertension Stage 1: BP 130-139/80-89. Hypertesnion Stage 2: BP 140 or higher/90 or higher. Hypertension Crisis: BP higher than 180/120 Peak Exercise Blood Pressure:: 140/58 Outcomes/Goals: Able to verbalize/achieve optimal blood pressure <130/80, Incorporates diet changes & exercise for blood pressure control by DC Interventions/plan: Instruct on optimal blood pressure, hypertension & medications, Instruct on effects of sodium, alcohol, stress, exercise &hypertension 30 day Reassessments:: Progressing - Tobacco Cessation Referral Smoking Cessation Referral:: No Individual Education/Counseling:: No Education Schedule Given:: Yes Medical- 90-Day Assessment Medical - Final Assessment Psychosocial - Initial Assess Psychosocial - 30-Day Assess Psychosocial - 60-Day Assess - VIsit Date of Eval: 06/21/21 Session #:: 24 Not Applicable: Yes History of previous Mental disease:: No - Psychosocial Test Tool Used:: PHQ-9 Questionnaire phq-9 Severity: Severity. 1-4 Minimal Depression. 5-9 Mild Depression. 10-14 Moderate Depression. 15-19 Moderately Sever Depression. 20-27 Severe Depression. Rule: - Referral to Behavioral Health PS - Interventions: Yes Attend Stress Management Classes, No Referral to Behavioral Health if PHQ-9 score >9:, No Referral to [facility], No Referral to Physician if PHQ-9 if score is 5-9: - Outcomes/Goals: See list Psychosocial Outcomes/Goals:: ID's personal stressors & 2 strategies to manage stress by discharge - Intervention/Plan: See List Interventions/Plan:: Assess stressors,coping strategies & signs of derpression on admission, Instruct/assist pt to develop coping & personal stress Mgt strategies, Instruct patient to recognize signs & symptoms of depression, Instruct patient to recog - 30-day Reassessments: 30 day Reassessments:: Progressing Psychosocial - 90-Day Assess Psychosocial - Final Assessmen Patient Health Questionnaire 60-Day Re-eval Assessment 1. Little interest or pleasure in doing things: Not at all 2. Feeling down, depressed, or hopeless: Not at all 3. Trouble falling or staying asleep, or sleeping too much: Several days 4. Feeling tired or having little energy: Not at all 5. Poor appetite or overeating: Several days 6. Feeling bad about yourself -- or that you are a failure or have let yourself or your family down: Not at all 7. Trouble concentrating on things, such as reading the newspaper or watching television: Not at all 8. Moving or speaking so slowly that other people could have noticed. Or the opposite - being so fidgety or restless that you have been moving around a lot more than usual: Not at all 9. Thoughts that you would be better off , or of hurting yourself in some way: Not at all How difficult have these problems made it for you to do your work, take care of things at home, or get along with other people?: Not difficult at all Total Score: 2 Self-Efficacy 60-Day Re-eval Assessment We would like to know how confident you are in doing certain activities. Please select your confidence level for:: Select your confidence level for the following using the scale 1-10 where 1 is not at all confident and 10 is totally confident. Your score is the average of all 6 responses. Fatigue: How confident are you that you can keep the fatigue caused by your disease from interfering with the things you want to do? Select Number: 9 Physical Discomfort or Pain: How confident are you that you can keep the physical discomfort or pain of your disease from interfering with the things you want to do? Select Number: 9 Emotional Distress: How confident are you that you can keep the emotional distress caused by your disease from interfering with the things you want to do? Select Number: 9 Other Symptoms or Health Problems: How confident are you that you can keep other symptoms or health problems from interfering with the things you want to do? Select Number: 9 Different Tasks and Activities: How confident are you that you can do the different tasks and activities needed to manage your health condition so as to reduce your need to see a doctor? Select Number: 9 Medication: How confident are you that you can do things other than just taking medication to reduce how much your illness affects your everyday life? Select Number: 9 Total Score:: 9 Nutrition Survey
[2021-06-21 11:09] VITALS: BP 112/52; BP 140/58; BMI 28.1
== END 2021-06-22 23:59 ==
LOC: CR 10:30
PROVIDERS: PCP Family Medicine; Referring Provider Internal Medicine Cardiovascular Disease; Visit Provider Internal Medicine Cardiovascular Disease
DX: I25.10 Atherosclerotic heart disease of native coronary artery without angina pectoris (principal); I77.810 Thoracic aortic ectasia; I11.9 Hypertensive heart disease without heart failure; I27.21 Secondary pulmonary arterial hypertension; I25.2 Old myocardial infarction; Z95.5 Presence of coronary angioplasty implant and graft
CPT/HCPCS: 93798

== ENCOUNTER → 2021-07-11 08:47 | Outpatient (CLI) | payer MEDICARE, OTHER, SELFPAY ==
[2021-06-21 11:09] VITALS: BMI 28.1
[2021-07-11 09:54] LABS: AST(SGOT) 66 U/L (15-37); Alanine Aminotransfer ALT/SGPT 111 U/L (16-61); Albumin, Serum 3.2 g/dL (3.2-5.0); Alkaline Phosphatase 242 U/L (45-117); Bilirubin, Direct 0.26 mg/dL (0.00-0.30); Cholesterol 92 mg/dL (200); Globulin 4.7 g/dL (2.2-4.2); High Density Lipoprotein 48 mg/dL; Protein, Total 7.9 g/dL (6.4-8.2); Triglycerides 103 mg/dL; Very Low Density Lipoprotein 21 mg/dL (5-40)
== END ==
PROVIDERS: PCP Family Medicine; Referring Provider Internal Medicine Cardiovascular Disease; Visit Provider Internal Medicine Cardiovascular Disease
DX: I25.10 Atherosclerotic heart disease of native coronary artery without angina pectoris (principal); Z95.5 Presence of coronary angioplasty implant and graft
CPT/HCPCS: 36415; 80061; 80076

== ENCOUNTER 2021-07-19 10:30 | Outpatient (RCR) | payer MEDICARE, OTHER, SELFPAY ==
[2021-06-23 00:13] VITALS: BP 112/52; BP 140/58; BMI 29.4
--- NOTE | 2021-07-18 08:00 | CR.ITP_ITS ---
Diagnosis Exercise - 90-day Assessment - Visit Date of Eval: 07/18/21 Session #:: 35 - Physician Prescribed Exercise Modalities: Treadmill, Airdyne, NuStep Frequency: 3x/week for 12 weeks [36 sessions] Intensity: 60-80% of age predicted maximum heart rate reserve Current METSs:: 4.0 Target Heart Rate:: 90-117 Maximum Excercise HR:: 111 Resting Blood Pressure: 120/60 Maximum Exercise Blood Pressure: 148/62 EKG Type: SR to sinus tach with rare PACs Current Physical Activity or Exercising minutes: 46 - Outcomes & Goals Goals:: Verbalizes understanding of THR, RPE & goal METS by session 6, Documents in home exercise log/reports 30 min aerobic 5 day/wk by DC, Demonstrates accurate pulse taking by DC - Intervention & Plan Exercise Program Goals: Instruct on personal THR & RPE, Instruct on MET level & personal MET goal, Show patient to take own pulse /validate performance until accurate, Instruct on home exercise - 30-day Reassessments 30 day Reassessments:: Met - Physical Activity Home Exercise Physical Activity - Home Exercise: Safe Exercise, Warm-up, Self-monitoring, Cool-Down, Home Exercise > 30 min Daily, Sitting Time <3 hours/daily - Outcomes & Goals Outcomes/Goals: Demonstrates correct Warm-up/exercise Cool-Down (S3) if = 2.5 METs, Verbalizes symptoms of exercise intolerance by Session 3 (S3), Demonstrate safe equipment use (S3) & follows exercise prescrition (6) - Intervention & Plan Plan/Intervention: Instruct warm-up & cool-down if exercising at > 2 METs, Instruct on symptoms of exercise intolerance & actions to take, Instruct & monitor on saf, Assess intial functional capacity & safety risk - 30-day Reassessments 30 day Reassessments:: Met Nutrition - Initial Assessment Nutrition - 30-Day Assessment Nutrition - 60-Day Assessment Nutrition - 90-Day Assessment - Program Goals Nutrition Program Goals: LDL <100 optimal. 100 - 129 Near optimal. 130 - 159 Borderline High. 160 - 189 High. Total Cholesterol <200 desirable. 200 - 239 Borderline High. >/= 240 High. HDL < 40 Low >/=60 High. Triglycerides <150 desirable. <199 optimal. VlDL 5 - 40. HgbA1C <7%. BMI <25 Patient has diagnosis of Hyperlipidemia (ICD E78)?: Yes - Visit Date of Assessment:: 07/18/21 Session #:: 35 - Cholesterol/Lipids Determine presence & major risk factors that modify LDL goal: Hypertension or hypertensive medication, Family history of premature CHD in Male < 55 years: female <65 yearsFa, Age men > 45 years; women >/= 55 years Outcomes/Goals: Pt IDs own risk factors & lifestyle modifications by Session 10, Verbalizes symptoms of angina & response by session 3., Pt independently manages Intervention/Plan: Instruct on personal lipid levels & lipid goals/NCEP guidelines, Instruct on cholesterol Referral to dietitian:: No - Diabetes (Other Core Measures) Diabetes Type: Not Applicable - Weight Mgt (Other Care) Not Applicable: Yes Height: 5 ft 5 in Weight:: 165 lb 8 oz - loss of 2.5 pounds this 30-days BMI: 27.5 Diagnosis Overweight/Obesity BMI> 30% ICD-10 E66: No Diagnosis High BMI/Morbid Obesity BMI> 35% ICD-10 Z68: No Outcomes/Goals: Pt sets, maintains & shows weight loss goal & trend during rehab Intervention/Plan: Instruct on ideal BMI & set weight loss goal w/patient, Assist pt to ID & incorporate diet changes for weight loss by S9 30 day Reassessments:: Progressing - Healthy Eating Habits Will attend diet classes:: Yes Outcomes/Goals:: Consume diet rich in vegs,fruits,whole grain/high fiber,f [place],lean meat, Limit sat/trans fats,cholesterol & added salts & sugars Intervention/Plan:: Assess current eating habits 30-day Reassessments:: Met - Education Gave educational materials for:: Healthy eating Nutrition - Final Assessment Medical - Initial Assessment Medical- 30-Day Assessment Medical- 60-Day Assessment Medical- 90-Day Assessment - Visit Date of Eval: 07/18/21 Session #:: 35 - Medication Compliance Preventative Medication(s):: Aspirin, Ticagrelor/P2Y12 inhibitor, Statin/lipid, Beta rajiv H/O mental health issues: depression, anxiety, or addiction?: No Doesn?t believe in the benefits of treatment?: No Believes medications are unnecessary or harmful?: No Has a concern about medication side effects?: No Expresses concern over the cost of medications?: No Outcomes/Goals: Verbalizes medications,desired effect & common side effects @ DC, Pt self-reports following medication regimen, Keeps card in wallet w/medications listed by DC Interventions/plans: Instruct on medication effects & side effects, Review medication list w/patient every two weeks, Instruct importance of taking meds as ordered & assist problem solving 30-day Reassessments:: Met - Tobacco Use Tobacco Use: Non-smoker - Hypertension Hypertension Diagnosis:: Hypertension ICD-10 I10 Resting Blood Pressure:: 120/60 [place] [employer] Hypertension Guidelines: [place] [employer] Hypertension Guidelines. Normal BP Less than 120/80. Elevated BP 120/80. Hypertension Stage 1: BP 130-139/80-89. Hypertesnion Stage 2: BP 140 or higher/90 or higher. Hypertension Crisis: BP higher than 180/120 Peak Exercise Blood Pressure:: 148/62 Outcomes/Goals: Able to verbalize/achieve optimal blood pressure <130/80, Incorporates diet changes & exercise for blood pressure control by DC Interventions/plan: Instruct on optimal blood pressure, hypertension & medications, Instruct on effects of sodium, alcohol, stress, exercise &hypertension 30 day Reassessments:: Met - Tobacco Cessation Referral Smoking Cessation Referral:: No Individual Education/Counseling:: No Education Schedule Given:: Yes Medical - Final Assessment Psychosocial - Initial Assess Psychosocial - 30-Day Assess Psychosocial - 60-Day Assess Psychosocial - 90-Day Assess - VIsit Date of Eval: 07/18/21 Session #:: 35 Not Applicable: Yes History of previous Mental disease:: No - Psychosocial Test Tool Used:: PHQ-9 Questionnaire phq-9 Severity: Severity. 1-4 Minimal Depression. 5-9 Mild Depression. 10-14 Moderate Depression. 15-19 Moderately Sever Depression. 20-27 Severe Depression. Rule: - Referral to Behavioral Health PS - Interventions: Yes Attend Stress Management Classes, No Referral to Behavioral Health if PHQ-9 score >9:, No Referral to [facility], No Referral to Physician if PHQ-9 if score is 5-9: - Outcomes/Goals: See list Psychosocial Outcomes/Goals:: ID's personal stressors & 2 strategies to manage stress by discharge - Intervention/Plan: See List Interventions/Plan:: Assess stressors,coping strategies & signs of derpression on admission, Instruct/assist pt to develop coping & personal stress Mgt strategies, Instruct patient to recognize signs & symptoms of depression, Instruct patient to recog - 30-day Reassessments: 30 day Reassessments:: Progressing Psychosocial - Final Assessmen Patient Health Questionnaire 90-Day Re-eval Assessment 1. Little interest or pleasure in doing things: Not at all 2. Feeling down, depressed, or hopeless: Not at all 3. Trouble falling or staying asleep, or sleeping too much: Several days 4. Feeling tired or having little energy: Not at all 5. Poor appetite or overeating: Not at all 6. Feeling bad about yourself -- or that you are a failure or have let yourself or your family down: Not at all 7. Trouble concentrating on things, such as reading the newspaper or watching television: Not at all 8. Moving or speaking so slowly that other people could have noticed. Or the opposite - being so fidgety or restless that you have been moving around a lot more than usual: Not at all 9. Thoughts that you would be better off , or of hurting yourself in some way: Not at all How difficult have these problems made it for you to do your work, take care of things at home, or get along with other people?: Not difficult at all Total Score: 1 Self-Efficacy 90-Day Re-eval Assessment We would like to know how confident you are in doing certain activities. Please select your confidence level for:: Select your confidence level for the following using the scale 1-10 where 1 is not at all confident and 10 is totally confident. Your score is the average of all 6 responses. Fatigue: How confident are you that you can keep the fatigue caused by your disease from interfering with the things you want to do? Select Number: 9 Physical Discomfort or Pain: How confident are you that you can keep the physical discomfort or pain of your disease from interfering with the things you want to do? Select Number: 9 Emotional Distress: How confident are you that you can keep the emotional distress caused by your disease from interfering with the things you want to do? Select Number: 9 Other Symptoms or Health Problems: How confident are you that you can keep other symptoms or health problems from interfering with the things you want to do? Select Number: 9 Different Tasks and Activities: How confident are you that you can do the different tasks and activities needed to manage your health condition so as to reduce your need to see a doctor? Select Number: 9 Medication: How confident are you that you can do things other than just taking medication to reduce how much your illness affects your everyday life? Select Number: 9 Total Score:: 9 Nutrition Survey
[2021-07-18 08:07] VITALS: BP 120/60; BP 148/62; BMI 27.5
== END 2021-07-23 23:59 ==
LOC: CR 10:30
PROVIDERS: PCP Family Medicine; Referring Provider Internal Medicine Cardiovascular Disease; Visit Provider Internal Medicine Cardiovascular Disease
DX: I25.10 Atherosclerotic heart disease of native coronary artery without angina pectoris (principal); Z95.5 Presence of coronary angioplasty implant and graft; I77.810 Thoracic aortic ectasia; I27.21 Secondary pulmonary arterial hypertension; I11.9 Hypertensive heart disease without heart failure; I25.2 Old myocardial infarction
CPT/HCPCS: 93798

== ENCOUNTER → 2021-08-08 09:02 | Outpatient (CLI) | payer MEDICARE, OTHER, SELFPAY ==
[2021-07-18 08:07] VITALS: BMI 27.5
[2021-08-08 10:23] LABS: AST(SGOT) 19 U/L (15-37); Alanine Aminotransfer ALT/SGPT 24 U/L (16-61); Albumin, Serum 3.5 g/dL (3.2-5.0); Alkaline Phosphatase 93 U/L (45-117); Bilirubin, Direct 0.14 mg/dL (0.00-0.30); Cholesterol 160 mg/dL (200); Globulin 4.2 g/dL (2.2-4.2); High Density Lipoprotein 49 mg/dL; Protein, Total 7.7 g/dL (6.4-8.2); Triglycerides 129 mg/dL; Very Low Density Lipoprotein 26 mg/dL (5-40)
== END ==
PROVIDERS: PCP Family Medicine; Visit Provider Internal Medicine Cardiovascular Disease
DX: E78.00 Pure hypercholesterolemia, unspecified (principal); I25.10 Atherosclerotic heart disease of native coronary artery without angina pectoris
CPT/HCPCS: 36415; 80061; 80076

== ENCOUNTER → 2022-02-28 | Outpatient (CLI) | payer MEDICARE, OTHER, SELFPAY ==
[2021-07-18 08:07] VITALS: BMI 27.5
[2022-02-28 10:56] LABS: AST(SGOT) 29 U/L (15-37); Alanine Aminotransfer ALT/SGPT 39 U/L (16-61); Albumin, Serum 3.6 g/dL (3.2-5.0); Alkaline Phosphatase 107 U/L (45-117); Bilirubin, Direct 0.24 mg/dL (0.00-0.30); Cholesterol 124 mg/dL (200); Globulin 4.1 g/dL (2.2-4.2); High Density Lipoprotein 57 mg/dL; Protein, Total 7.7 g/dL (6.4-8.2); Triglycerides 129 mg/dL; Very Low Density Lipoprotein 26 mg/dL (5-40)
== END | disposition home or self-care (01) ==
LOC: LAB 09:15
PROVIDERS: PCP Family Medicine; Referring Provider Nurse Practitioner Family; Visit Provider Nurse Practitioner Family
DX: E78.00 Pure hypercholesterolemia, unspecified (principal); R74.8 Abnormal levels of other serum enzymes
CPT/HCPCS: 36415; 80061; 80076

== ENCOUNTER → 2022-06-26 | Outpatient (CLI) | payer MEDICARE, OTHER, SELFPAY ==
[2021-07-18 08:07] VITALS: BMI 27.5
--- NOTE | 2022-06-26 12:54 | VDLE_ITS ---
Reason For Study: LEG PAIN RIGHT LEFT GSV is normal. CFV is compressible, spontaneous, phasic, CFV is compressible, spontaneous, phasic, competent, and demonstrates normal competent and demonstrates normal augmentation. augmentation. FV is compressible, spontaneous, phasic, competent and demonstrates normal augmentation. POP V is compressible, spontaneous, phasic, competent and demonstrates normal augmentation. T/P Trunk is compressible. PTV is compressible. RT PerV is compressible. Procedure This is a venous duplex using B-mode, color flow and spectral Doppler. Exam performed in department. The exam was diagnostic. A preliminary report was called and/or faxed to Dr. Hughes. VL/Venous Duplex US, Unilateral Interpretation Summary Deep veins of the right lower extremity are patent and compressible segmentally . There is no evidence of right lower extremity deep vein thrombosis. The right great sapheno us vein appears patent and compressible segmentally. Ordering Physician: Nestor Hughes Referring Physician: Nestor Hughes Performed By: Fuentes Worthy RVT
--- NOTE | 2022-06-26 13:25 | RAD_ITS ---
EXAM: XR RIGHT KNEE COMPLETE, 4 OR MORE VIEWS CLINICAL INDICATION: ACUTE KNEE PAIN R -- HAS VL US FIRST, WILL CALL TECHNIQUE: Four or more views of the right knee. This report was created using [employer] report generation technology. COMPARISON: None. FINDINGS: BONES/JOINTS: There is a tiny suprapatellar joint effusion. No acute fracture. No subluxation. Normal alignment. No sclerotic or destructive changes observed. SOFT TISSUES: Unremarkable. No soft tissue swelling or gas. No radiopaque foreign body. RAD/Knee 4 or More Views IMPRESSION: No acute findings in the right knee. Electronically Signed: Rommel Bull MD at 16:59 EDT ,
== END | disposition home or self-care (01) ==
LOC: CVS 12:51
PROVIDERS: PCP Family Medicine; Referring Provider Family Medicine; Visit Provider Family Medicine
DX: M79.604 Pain in right leg (principal); M25.561 Pain in right knee
CPT/HCPCS: 73564; 93971

== ENCOUNTER → 2022-07-31 | Outpatient (CLI) | payer MEDICARE, OTHER, SELFPAY ==
[2021-07-18 08:07] VITALS: BMI 27.5
--- NOTE | 2022-07-31 13:52 | ECHOCS_ITS ---
Reason For Study: Dilated AO Root Procedure This was a 2D Doppler, Color Flow transthoracic echocardiogram. The study was technically difficult. Contrast injection was performed. Exam performed in department. Left Ventricle Normal LV size. Left ventricular systolic function is normal. The estimated ejection fraction is 60 %. Stage 1 diastolic dysfunction. No regional wall motion abnormalities noted. Right Ventricle Normal RV size. Normal systolic function. Atria Normal left atrium. Normal right atrium. Mitral Valve Normal mitral valve. Tricuspid Valve Normal tricuspid valve. Mild tricuspid valve insufficiency. Pulmonary artery systolic pressure is 27 mmHg. Aortic Valve Trisinus/trileaflet aortic valve. Mild focal aortic valve calcification. Pulmonic Valve Normal pulmonic valve. Great Vessels Mild to moderately dilated aortic root. The pulmonary artery is normal size. Normal inferior vena cava. Pericardium/Pleural No pericardial effusion. Medication 20 gauge I.V. with prn adaptor inserted into right arm. Diluted definity 2ml given slow IV push to enhance endocardial definition. MMode/2D Measurements & Calculations LVIDd: 4.1 cm IVSd: 1.0 cm Ao root diam: 4.3 cm LVIDs: 2.7 cm LVPWd: 1.1 cm LA dimension: 3.3 cm FS: 33.2 % Time Measurements MV dec time: 0.26 sec Doppler Measurements & Calculations MV E max howard: 42.3 cm/sec Lat Peak E' Howard: 5.8 cm/sec Med Peak E' Howard: 4.7 cm/sec MV A max howard: 110.4 cm/sec E/E' lat: 7.3 E/E' med: 9.1 MV E/A: 0.38 MV V2 max: 114.8 cm/sec MV P1/2t max howard: 46.9 cm/sec Ao V2 max: 120.0 cm/sec MV max P.3 mmHg MV P1/2t: 77.3 msec Ao max P.8 mmHg MV V2 mean: 42.7 cm/sec Ao V2 mean: 78.4 cm/sec MV mean P.99 mmHg MV dec slope: 177.8 cm/sec2 Ao mean P.9 mmHg MV V2 VTI: 21.7 cm MVA(P1/2t): 2.8 cm2 Ao V2 VTI: 22.5 cm LV V1 max: 103.1 cm/sec PA V2 max: 93.1 cm/sec TR max howard: 239.3 cm/sec LV V1 max P.3 mmHg TR max P.1 mmHg LV V1 mean P.6 mmHg LV V1 mean: 77.8 cm/sec LV V1 VTI: 21.7 cm ECHO/Echo Complete W/ Contrast Interpretation Summary Normal LV size. Left ventricular systolic function is normal. The estimated ejection fraction is 60 %. Stage 1 diastolic dysfunction. Mild to moderately dilated aortic root. Contrast injection was performed. Ordering Physician: Kristie Shelby Referring Physician: Nestor Hughes Performed By: Karl Hagen RCS
== END | disposition home or self-care (01) ==
LOC: CVS 13:51
PROVIDERS: PCP Family Medicine; Referring Provider Nurse Practitioner Gerontology; Visit Provider Nurse Practitioner Gerontology
DX: I25.10 Atherosclerotic heart disease of native coronary artery without angina pectoris (principal)
CPT/HCPCS: 93306; Q9957; A4216; C8929

== ENCOUNTER → 2022-09-05 | Outpatient (CLI) | payer MEDICARE, OTHER, SELFPAY ==
[2021-07-18 08:07] VITALS: BMI 27.5
[2022-09-05 11:20] LABS: AST(SGOT) 24 U/L (15-37); Alanine Aminotransfer ALT/SGPT 28 U/L (16-61); Albumin, Serum 3.7 g/dL (3.2-5.0); Alkaline Phosphatase 73 U/L (45-117); Cholesterol 124 mg/dL (200); Globulin 3.2 g/dL (2.2-4.2); High Density Lipoprotein 53 mg/dL; Protein, Total 6.9 g/dL (6.4-8.2); Triglycerides 149 mg/dL; Very Low Density Lipoprotein 30 mg/dL (5-40)
== END | disposition home or self-care (01) ==
LOC: LAB 08:57
PROVIDERS: PCP Family Medicine; Referring Provider Nurse Practitioner Family; Visit Provider Nurse Practitioner Family
DX: E78.00 Pure hypercholesterolemia, unspecified (principal); R74.8 Abnormal levels of other serum enzymes
CPT/HCPCS: 36415; 80061; 80076

== ENCOUNTER → 2022-10-16 | Outpatient (CLI) | payer MEDICARE, OTHER, SELFPAY ==
[2021-07-18 08:07] VITALS: BMI 27.5
--- NOTE | 2022-10-16 16:00 | MRI_ITS ---
STUDY: MRI RIGHT KNEE REASON FOR EXAM: Male, 82 years old. Osteoarthritis TECHNIQUE: Standardized fat and water weighted pulse sequences were obtained in all 3 orthogonal planes. COMPARISON: X-ray June 26, 2022 FINDINGS: There is a medial meniscus tear of the posterior horn, series 3 images through . There is diffuse, greater than 50% thickness articular cartilage loss of the medial femorotibial compartment. There is mild osteoarthritic spur formation of the medial knee compartment. There is a partial sprain of the MCL with interstitial and periligamentous edema. Normal distal semimembranosus, gracilis and semitendinosus tendons. Normal lateral meniscus. Normal hyaline cartilage of the lateral femorotibial compartment. Normal lateral femoral condyle and tibial plateau. Normal proximal tibiofibular articulation. Normal lateral collateral (fibular) ligament. Normal popliteus tendon. Normal biceps femoris tendon. Normal anterior cruciate ligament (ACL). Normal posterior cruciate ligament (PCL). There is arthrosis of the patellofemoral articulation. There is diffuse, greater than 50% thickness articular cartilage loss of the patellofemoral compartment. There is mild spurring. Normal medial and lateral patellar retinaculum. Normal quadriceps tendon. Normal patellar tendon. Normal Hoffa''s fat pad. There is a moderate volume joint effusion. There is a 2.4 cm Mock''s cyst. The soft tissues are unremarkable. The otherwise visualized osseous structures are unremarkable. MRI/Lower Ext Joint Only (Routine) IMPRESSION: Medial meniscus tear Medial collateral ligament sprain. Degenerative change. Joint effusion with popliteal cyst. Electronically Signed: Arvind Snell MD at 22:00 EST ,
== END | disposition home or self-care (01) ==
LOC: MRI 15:24
PROVIDERS: PCP Family Medicine; Referring Provider Orthopaedic Surgery; Visit Provider Orthopaedic Surgery
DX: M17.11 Unilateral primary osteoarthritis, right knee (principal); M71.21 Synovial cyst of popliteal space [Baker], right knee; S83.241A Other tear of medial meniscus, current injury, right knee, initial encounter; S83.411A Sprain of medial collateral ligament of right knee, initial encounter; X58.XXXA Exposure to other specified factors, initial encounter
CPT/HCPCS: 73721

== ENCOUNTER → 2022-12-21 | Outpatient (CLI) | payer MEDICARE, OTHER, SELFPAY ==
[2021-07-18 08:07] VITALS: BMI 27.5
[2022-12-21 15:16] LABS: Absolute Lymphocyte Count 1.11 X10^3/uL (0.83-4.51); Absolute Neutrophil Count 2.9 X10^3/uL (2.0-7.7); Basophil# 0.02 X10^3/uL; Basophil% 0.4 % (0-1); Eosinophil# 0.09 X10^3/uL; Hematocrit 38.2 % (40-54); Hemoglobin 12.9 g/dL (13.0-16.5); Lymphocyte # 1.11 X10^3/ul (0.83-4.51); Lymphocyte % 24.5 % (19-41); Mean Corp Hgb Conc 33.8 g/dL (32-36); Mean Corpuscular Hgb 32.2 pg (27.0-32.0); Mean Corpuscular Volume 95.3 fL (80-94); Mean Platelet Vol. 9.1 fl (6.2-12.0); Monocyte# 0.38 X10^3/uL; Monocyte% 8.4 % (0-10); NRBC Flagged by Analyzer 0 % (0-5); Neutrophil # 2.92 X10^3/uL (2.7-7.7); Neutrophil % 64.5 % (47-70); Platelet Count 220 K/mm3 (150-450); RBC Distribution Width CV 12.9 % (11.6-14.6); RBC Distribution Width SD 44.9 fl (35.1-43.9); Red Blood Count 4.01 M/mm3 (4.6-6.2); White Blood Count 4.5 K/mm3 (4.4-11.0)
[2022-12-21 15:49] LABS: ALB/GLOB Ratio 1.1 RATIO (0.9-2.4); AST(SGOT) 22 U/L (15-37); Alanine Aminotransfer ALT/SGPT 30 U/L (16-61); Albumin, Serum 3.8 g/dL (3.2-5.0); Alkaline Phosphatase 70 U/L (45-117); Anion Gap 6 (5-15); BUN 14 mg/dL (7-18); BUN/Creat Ratio 14.6 RATIO (10-20); Calcium,Total 9.5 mg/dL (8.5-10.1); Chloride 106 mmol/L (98-107); Creatinine, Serum 0.96 mg/dL (0.70-1.30); EST Glomerular Filtration Rate 80 mL/min (>60); Est Glom Filt Rate - Afr Amer 96 mL/min (>60); Globulin 3.4 g/dL (2.2-4.2); Glucose 164 mg/dL (74-106); PSA,Total- Diagnostic < 0.01 ng/mL (0.0-4.0); Potassium 3.8 mmol/L (3.5-5.1); Protein, Total 7.2 g/dL (6.4-8.2); Sodium Level 137 mmol/L (136-145); Thyroid Stim Hormone (TSH) 2.81 uIU/mL (0.358-3.74)
[2022-12-25 10:34] LABS: Ferritin 194 ng/mL (26-388); Iron 56 ug/dL (65-175); Iron Binding Capacity,Total 250 ug/dL (250-450); PERCENT IRON SATURATION 22.4 % (15.0-55.0)
[2022-12-25 10:54] LABS: Hemoglobin A1c 5.3 % (3.8-5.6)
[2022-12-27 14:18] LABS: Transferrin 207 mg/dL (149-313)
== END | disposition home or self-care (01) ==
LOC: MFPLAB 11:34
PROVIDERS: PCP Family Medicine; Referring Provider Family Medicine; Visit Provider Family Medicine
DX: D64.9 Anemia, unspecified (principal); R73.09 Other abnormal glucose; Z85.46 Personal history of malignant neoplasm of prostate
CPT/HCPCS: 36415; 80053; 82728; 83036; 83540; 83550; 84153; 84443; 84466; 85025

== ENCOUNTER → 2023-05-22 | Outpatient (CLI) | payer MEDICARE, OTHER, SELFPAY ==
[2021-07-18 08:07] VITALS: BMI 27.5
[2023-05-22 14:16] LABS: Bacteria 0 SEEN /hpf (None Seen); Mucous, Urine 0 SEEN /hpf (<or=2+); Red Blood Cells-Urine 0 SEEN /hpf (0-5); Squamous Epithelial Cells - UA 0 SEEN /hpf (0-5); White Blood Cells 0 SEEN /hpf (0-5)
[2023-05-22 17:30] LABS: Color, Urine Straw (Yellow); Glucose, Dipstick Normal (Normal); Ketone-Dipstick Negative (Negative); Leukocyte Esterase-Dipstick Negative /ul (Negative); Nitrite-Dipstick Negative (Negative); Occult Blood-Urine Negative /ul (Negative); Protein-Dipstick Negative (Negative); Urine Bilirubin Dipstick Negative (Negative); Urine Clarity Clear (Clear); Urine Urobilinogen Normal (Normal); Urine pH 6.5 (5.0 - 8.0)
[2023-05-22 17:43] LABS: Absolute Lymphocyte Count 0.85 X10^3/uL (0.83-4.51); Absolute Neutrophil Count 2.5 X10^3/uL (2.0-7.7); Basophil# 0.01 X10^3/uL; Basophil% 0.3 % (0-1); Eosinophil# 0.07 X10^3/uL; Eosinophils% 1.9 % (0-5); Hematocrit 37.8 % (40-54); Hemoglobin 11.9 g/dL (13.0-16.5); Lymphocyte # 0.85 X10^3/ul (0.83-4.51); Lymphocyte % 22.7 % (19-41); Mean Corp Hgb Conc 31.5 g/dL (32-36); Mean Corpuscular Hgb 31.9 pg (27.0-32.0); Mean Corpuscular Volume 101.3 fL (80-94); Monocyte# 0.34 X10^3/uL; Monocyte% 9.1 % (0-10); NRBC Flagged by Analyzer 0 % (0-5); Neutrophil # 2.46 X10^3/uL (2.7-7.7); Neutrophil % 65.7 % (47-70); Platelet Count 194 K/mm3 (150-450); RBC Distribution Width SD 48.2 fl (35.1-43.9); Red Blood Count 3.73 M/mm3 (4.6-6.2); White Blood Count 3.7 K/mm3 (4.4-11.0)
[2023-05-22 18:21] LABS: ALB/GLOB Ratio 1.1 RATIO (0.9-2.4); AST(SGOT) 19 U/L (15-37); Alanine Aminotransfer ALT/SGPT 25 U/L (16-61); Albumin, Serum 3.8 g/dL (3.2-5.0); Alkaline Phosphatase 67 U/L (45-117); Anion Gap 7 (5-15); BUN 17 mg/dL (7-18); BUN/Creat Ratio 17.7 RATIO (10-20); Chloride 106 mmol/L (98-107); Cholesterol 117 mg/dL (200); Creatinine, Serum 0.96 mg/dL (0.70-1.30); EST Glomerular Filtration Rate 79 mL/min (>60); Est Glom Filt Rate - Afr Amer 96 mL/min (>60); Ferritin 220 ng/mL (26-388); Globulin 3.4 g/dL (2.2-4.2); Glucose 108 mg/dL (74-106); High Density Lipoprotein 46 mg/dL; Iron 51 ug/dL (65-175); Iron Binding Capacity,Total 287 ug/dL (250-450); Potassium 3.9 mmol/L (3.5-5.1); Protein, Total 7.2 g/dL (6.4-8.2); Sodium Level 138 mmol/L (136-145); Triglycerides 178 mg/dL; Very Low Density Lipoprotein 36 mg/dL (5-40)
== END | disposition home or self-care (01) ==
LOC: MFPLAB 14:14
PROVIDERS: PCP Family Medicine; Visit Provider Family Medicine
DX: I10 Essential (primary) hypertension (principal); R73.09 Other abnormal glucose; D64.9 Anemia, unspecified; E78.5 Hyperlipidemia, unspecified
CPT/HCPCS: 36415; 80053; 80061; 81001; 82728; 83036; 83540; 83550; 85025

== ENCOUNTER → 2023-07-24 | Outpatient (CLI) | payer MEDICARE, OTHER, SELFPAY ==
[2021-07-18 08:07] VITALS: BMI 27.5
--- NOTE | 2023-07-24 12:54 | CT_ITS ---
EXAM: CT ANGIOGRAPHY CHEST WITH INTRAVENOUS CONTRAST CLINICAL INDICATION: Dilated Aortic Root TECHNIQUE: Helically acquired angiography images were obtained of the chest with intravenous contrast. This CT exam was performed using one or more of the following dose reduction techniques: automated exposure control, adjustment of the mA and/or kV according to patient size, and/or use of iterative reconstruction technique. MIP reconstructed images were created and reviewed. CONTRAST: IV 100mL [id number] COMPARISON: No relevant prior studies available. FINDINGS: PULMONARY ARTERIES: Normal. Normal in caliber. No evidence of pulmonary embolism. AORTA: Normal. Normal in caliber. No evidence of dissection. GREAT VESSELS OF AORTIC ARCH: Normal. Normal in caliber. No evidence of dissection. LUNGS AND PLEURAL SPACES: Calcified granulomata noted within the left upper and right lower lobes. Lungs are otherwise clear. No mass. No pleural effusion or thickening. No pneumothorax. HEART: Normal. Heart size is normal. No pericardial effusion. MEDIASTINUM: Normal. No mediastinal or hilar adenopathy. Esophagus is unremarkable. No hiatal hernia. BONES/JOINTS: Normal. No suspicious lytic or blastic abnormality. CT/CTA Chest W/WO Contrast IMPRESSION: 1. No acute cardiopulmonary abnormality. 2. No evidence of acute pulmonary embolism. 3. No aortic aneurysm or dissection. Electronically Signed: Dexter Crabtree MD at 15:56 EDT ,
[2023-07-24 13:27] LABS: CREATININE FINGERSTICK 1.2 mg/dL (0.70-1.30); EGFR FINGERSTICK > 60.0000 mL/min (>60)
== END | disposition home or self-care (01) ==
LOC: CT 12:54
PROVIDERS: PCP Family Medicine; Referring Provider Nurse Practitioner Gerontology; Visit Provider Nurse Practitioner Gerontology
DX: I77.810 Thoracic aortic ectasia (principal)
CPT/HCPCS: 71275

== ENCOUNTER → 2023-09-10 | Outpatient (CLI) | payer MEDICARE, OTHER, SELFPAY ==
[2021-07-18 08:07] VITALS: BMI 27.5
[2023-09-10 15:12] LABS: Absolute Lymphocyte Count 1.26 X10^3/uL (0.83-4.51); Absolute Neutrophil Count 2.5 X10^3/uL (2.0-7.7); Basophil# 0.02 X10^3/uL; Basophil% 0.5 % (0-1); Eosinophil# 0.07 X10^3/uL; Eosinophils% 1.7 % (0-5); Hematocrit 35.2 % (40-54); Hemoglobin 11.9 g/dL (13.0-16.5); Lymphocyte # 1.26 X10^3/ul (0.83-4.51); Lymphocyte % 30.1 % (19-41); Mean Corp Hgb Conc 33.8 g/dL (32-36); Mean Corpuscular Hgb 32.5 pg (27.0-32.0); Mean Corpuscular Volume 96.2 fL (80-94); Mean Platelet Vol. 8.6 fl (6.2-12.0); Monocyte# 0.34 X10^3/uL; Monocyte% 8.1 % (0-10); NRBC Flagged by Analyzer 0 % (0-5); Neutrophil # 2.49 X10^3/uL (2.7-7.7); Neutrophil % 59.4 % (47-70); Platelet Count 200 K/mm3 (150-450); RBC Distribution Width CV 12.9 % (11.6-14.6); RBC Distribution Width SD 45.1 fl (35.1-43.9); Red Blood Count 3.66 M/mm3 (4.6-6.2); White Blood Count 4.2 K/mm3 (4.4-11.0)
[2023-09-10 15:56] LABS: ALB/GLOB Ratio 1.2 RATIO (0.9-2.4); AST(SGOT) 20 U/L (15-37); Alanine Aminotransfer ALT/SGPT 22 U/L (16-61); Albumin, Serum 3.7 g/dL (3.2-5.0); Alkaline Phosphatase 68 U/L (45-117); Anion Gap 8 (5-15); BUN 15 mg/dL (7-18); BUN/Creat Ratio 16.5 RATIO (10-20); Calcium,Total 8.8 mg/dL (8.5-10.1); Chloride 107 mmol/L (98-107); Cholesterol 102 mg/dL (200); Creatinine, Serum 0.91 mg/dL (0.70-1.30); EST Glomerular Filtration Rate 85 mL/min (>60); Est Glom Filt Rate - Afr Amer 102 mL/min (>60); Globulin 3.2 g/dL (2.2-4.2); Glucose 120 mg/dL (74-106); High Density Lipoprotein 43 mg/dL; Potassium 4.2 mmol/L (3.5-5.1); Protein, Total 6.9 g/dL (6.4-8.2); Sodium Level 139 mmol/L (136-145); Triglycerides 245 mg/dL; Very Low Density Lipoprotein 49 mg/dL (5-40)
[2023-09-13 09:53] LABS: Ferritin 206 ng/mL (26-388); Iron 47 ug/dL (65-175); Iron Binding Capacity,Total 243 ug/dL (250-450); PERCENT IRON SATURATION 19.3 % (15.0-55.0)
[2023-09-13 10:17] LABS: Hemoglobin A1c 5.1 % (3.8-5.6)
== END | disposition home or self-care (01) ==
LOC: MFPLAB 14:13
PROVIDERS: PCP Family Medicine; Visit Provider Family Medicine
DX: R73.09 Other abnormal glucose (principal); I25.10 Atherosclerotic heart disease of native coronary artery without angina pectoris; D64.9 Anemia, unspecified
CPT/HCPCS: 36415; 80053; 80061; 82728; 83036; 83540; 83550; 85025

== ENCOUNTER → 2023-09-18 | Outpatient (CLI) | payer MEDICARE, OTHER, SELFPAY ==
[2021-07-18 08:07] VITALS: BMI 27.5
[2023-09-18 16:20] LABS: Ferritin 201 ng/mL (26-388); Iron 48 ug/dL (65-175); Iron Binding Capacity,Total 222 ug/dL (250-450)
[2023-09-18 18:20] LABS: Vitamin B12 586 pg/mL (211-911)
== END | disposition home or self-care (01) ==
LOC: MTLAB 12:49
PROVIDERS: PCP Family Medicine; Referring Provider Family Medicine; Visit Provider Family Medicine
DX: D64.9 Anemia, unspecified (principal)
CPT/HCPCS: 36415; 82607; 82728; 83540; 83550

== ENCOUNTER → 2023-12-30 | Outpatient (CLI) | payer MEDICARE, OTHER, SELFPAY ==
[2021-07-18 08:07] VITALS: BMI 27.5
[2023-12-30 10:41] LABS: Bacteria 0 SEEN /hpf (None Seen); Mucous, Urine 0 SEEN /hpf (<or=2+); Red Blood Cells-Urine 0 SEEN /hpf (0-5); Squamous Epithelial Cells - UA 0 SEEN /hpf (0-5); White Blood Cells 0 SEEN /hpf (0-5)
[2023-12-30 12:14] LABS: Color, Urine Yellow (Yellow); Glucose, Dipstick Normal (Normal); Ketone-Dipstick Negative (Negative); Leukocyte Esterase-Dipstick Negative /ul (Negative); Nitrite-Dipstick Negative (Negative); Occult Blood-Urine Negative /ul (Negative); Protein-Dipstick Negative (Negative); Urine Bilirubin Dipstick Negative (Negative); Urine Clarity Clear (Clear); Urine Urobilinogen Normal (Normal)
[2023-12-30 12:33] LABS: Absolute Lymphocyte Count 0.78 X10^3/uL (0.83-4.51); Absolute Neutrophil Count 2.4 X10^3/uL (2.0-7.7); Basophil# 0.01 X10^3/uL; Basophil% 0.3 % (0-1); Eosinophil# 0.07 X10^3/uL; Hematocrit 33.4 % (40-54); Hemoglobin 11.1 g/dL (13.0-16.5); Lymphocyte # 0.78 X10^3/ul (0.83-4.51); Lymphocyte % 22.1 % (19-41); Mean Corp Hgb Conc 33.2 g/dL (32-36); Mean Corpuscular Hgb 32.3 pg (27.0-32.0); Mean Corpuscular Volume 97.1 fL (80-94); Mean Platelet Vol. 8.8 fl (6.2-12.0); Monocyte% 8.5 % (0-10); NRBC Flagged by Analyzer 0 % (0-5); Neutrophil # 2.36 X10^3/uL (2.7-7.7); Neutrophil % 66.8 % (47-70); Platelet Count 187 K/mm3 (150-450); RBC Distribution Width CV 13.2 % (11.6-14.6); RBC Distribution Width SD 46.5 fl (35.1-43.9); Red Blood Count 3.44 M/mm3 (4.6-6.2); White Blood Count 3.5 K/mm3 (4.4-11.0)
[2023-12-30 13:12] LABS: ALB/GLOB Ratio 1.1 RATIO (0.9-2.4); AST(SGOT) 16 U/L (15-37); Alanine Aminotransfer ALT/SGPT 24 U/L (16-61); Albumin, Serum 3.6 g/dL (3.2-5.0); Alkaline Phosphatase 70 U/L (45-117); Anion Gap 7 (5-15); BUN 15 mg/dL (7-18); BUN/Creat Ratio 14.9 RATIO (10-20); Chloride 106 mmol/L (98-107); Cholesterol 121 mg/dL (200); Creatinine, Serum 1.01 mg/dL (0.70-1.30); EST Glomerular Filtration Rate 75 mL/min (>60); Est Glom Filt Rate - Afr Amer 90 mL/min (>60); Ferritin 161 ng/mL (26-388); Globulin 3.3 g/dL (2.2-4.2); Glucose 156 mg/dL (74-106); High Density Lipoprotein 46 mg/dL; Iron 47 ug/dL (65-175); Iron Binding Capacity,Total 239 ug/dL (250-450); Magnesium 2.2 mg/dL (1.6-2.6); Potassium 4.1 mmol/L (3.5-5.1); Protein, Total 6.9 g/dL (6.4-8.2); Sodium Level 137 mmol/L (136-145); Triglycerides 155 mg/dL; Very Low Density Lipoprotein 31 mg/dL (5-40)
== END | disposition home or self-care (01) ==
LOC: MFPLAB 10:39
PROVIDERS: PCP Family Medicine; Visit Provider Family Medicine
DX: I10 Essential (primary) hypertension (principal); E61.1 Iron deficiency; D64.9 Anemia, unspecified
CPT/HCPCS: 36415; 80053; 80061; 81001; 82728; 83540; 83550; 83735; 84443; 85025

== ENCOUNTER → 2024-09-04 | Outpatient (CLI) | payer MEDICARE, OTHER, SELFPAY ==
[2021-07-18 08:07] VITALS: BMI 27.5
[2024-09-04 11:52] LABS: Absolute Lymphocyte Count 1.01 X10^3/uL (0.83-4.51); Absolute Neutrophil Count 2.7 X10^3/uL (2.0-7.7); Basophil# 0.02 X10^3/uL; Basophil% 0.5 % (0-1); Eosinophil# 0.11 X10^3/uL; Eosinophils% 2.6 % (0-5); Hematocrit 33.8 % (40-54); Hemoglobin 11.4 g/dL (13.0-16.5); Lymphocyte # 1.01 X10^3/ul (0.83-4.51); Lymphocyte % 24.2 % (19-41); Mean Corp Hgb Conc 33.7 g/dL (32-36); Mean Corpuscular Hgb 31.9 pg (27.0-32.0); Mean Corpuscular Volume 94.7 fL (80-94); Mean Platelet Vol. 8.6 fl (6.2-12.0); Monocyte# 0.32 X10^3/uL; Monocyte% 7.7 % (0-10); NRBC Flagged by Analyzer 0 % (0-5); Neutrophil # 2.69 X10^3/uL (2.7-7.7); Neutrophil % 64.3 % (47-70); Platelet Count 194 K/mm3 (150-450); RBC Distribution Width CV 13.4 % (11.6-14.6); RBC Distribution Width SD 46.6 fl (35.1-43.9); Red Blood Count 3.57 M/mm3 (4.6-6.2); White Blood Count 4.2 K/mm3 (4.4-11.0)
[2024-09-04 13:06] LABS: AST(SGOT) 13 U/L (15-37); Alanine Aminotransfer ALT/SGPT 22 U/L (16-61); Albumin, Serum 3.6 g/dL (3.2-5.0); Alkaline Phosphatase 66 U/L (45-117); Anion Gap 7 (5-15); BUN 14 mg/dL (7-18); BUN/Creat Ratio 13.7 RATIO (10-20); Calcium,Total 9.4 mg/dL (8.5-10.1); Chloride 108 mmol/L (98-107); Cholesterol 125 mg/dL (200); Creatinine, Serum 1.02 mg/dL (0.70-1.30); EST Glomerular Filtration Rate 74 mL/min (>60); Est Glom Filt Rate - Afr Amer 89 mL/min (>60); Ferritin 126 ng/mL (26-388); Globulin 3.5 g/dL (2.2-4.2); Glucose 154 mg/dL (74-106); High Density Lipoprotein 51 mg/dL; Iron 46 ug/dL (65-175); Iron Binding Capacity,Total 262 ug/dL (250-450); Magnesium 2.3 mg/dL (1.6-2.6); Protein, Total 7.1 g/dL (6.4-8.2); Sodium Level 139 mmol/L (136-145); Triglycerides 153 mg/dL; Very Low Density Lipoprotein 31 mg/dL (5-40)
[2024-09-07 16:30] LABS: Vitamin B12 263 pg/mL (211-911)
[2024-09-08 10:06] LABS: Hemoglobin A1c 5.4 % (3.8-5.6)
== END | disposition home or self-care (01) ==
LOC: MFPLAB 11:05
PROVIDERS: PCP Family Medicine; Referring Provider Family Medicine; Visit Provider Family Medicine
DX: R73.09 Other abnormal glucose (principal); I25.10 Atherosclerotic heart disease of native coronary artery without angina pectoris; D64.9 Anemia, unspecified
CPT/HCPCS: 36415; 80053; 80061; 82607; 82728; 82746; 83036; 83540; 83550; 83735; 85025

== ENCOUNTER → 2025-03-04 | Outpatient (CLI) | payer MEDICARE, OTHER, SELFPAY ==
[2021-07-18 08:07] VITALS: BMI 27.5
[2025-03-04 12:35] LABS: Absolute Lymphocyte Count 1.03 X10^3/uL (0.83-4.51); Absolute Neutrophil Count 2.8 X10^3/uL (2.0-7.7); Basophil# 0.02 X10^3/uL; Basophil% 0.5 % (0-1); Eosinophil# 0.07 X10^3/uL; Eosinophils% 1.7 % (0-5); Hematocrit 32.4 % (40-54); Hemoglobin 10.7 g/dL (13.0-16.5); Lymphocyte # 1.03 X10^3/ul (0.83-4.51); Lymphocyte % 24.3 % (19-41); Mean Corpuscular Hgb 32.5 pg (27.0-32.0); Mean Corpuscular Volume 98.5 fL (80-94); Monocyte# 0.34 X10^3/uL; NRBC Flagged by Analyzer 0 % (0-5); Neutrophil # 2.75 X10^3/uL (2.7-7.7); Platelet Count 203 K/mm3 (150-450); RBC Distribution Width CV 13.6 % (11.6-14.6); RBC Distribution Width SD 48.1 fl (35.1-43.9); Red Blood Count 3.29 M/mm3 (4.6-6.2); White Blood Count 4.2 K/mm3 (4.4-11.0)
[2025-03-04 16:22] LABS: ALB/GLOB Ratio 1.5 RATIO (0.9-2.4); AST(SGOT) 21 U/L (<=37); Alanine Aminotransfer ALT/SGPT 15 U/L (<=46); Albumin, Serum 4.1 g/dL (3.4-4.8); Alkaline Phosphatase 68 U/L (40-129); Anion Gap 13 (5-15); BUN 15 mg/dL (4-19); BUN/Creat Ratio 13.8 RATIO (10-20); Calcium,Total 9.5 mg/dL (7.6-11.0); Carbon Dioxide 21.6 mmol/L (21.0-32.0); Chloride 103 mmol/L (98-108); Cholesterol 128 mg/dL (<=200); Creatinine, Serum 1.06 mg/dL (0.70-1.20); EST Glomerular Filtration Rate 68 (>60); Ferritin 234 ng/mL (37-417); Globulin 2.8 g/dL (2.2-4.2); Glucose 178 mg/dL (70-99); High Density Lipoprotein 42 mg/dL; Low Density Lipoprotein Calc. 50 mg/dL; Potassium 4.3 mmol/L (3.3-5.1); Protein, Total 6.9 g/dL (5.9-8.4); Sodium Level 138 mmol/L (133-145); Triglycerides 182 mg/dL; Very Low Density Lipoprotein 36 mg/dL (5-40); Vitamin B12 1012 pg/mL (180-914); cholesterol:hdl ratio screen 3.07
[2025-03-04 16:52] LABS: Iron 46 ug/dL (65-175); Iron Binding Capacity,Unsat 176 ug/dL (228-428)
[2025-03-04 17:53] LABS: Iron Binding Capacity,Total 222 ug/dL (250-450)
[2025-03-05 13:44] LABS: Hemoglobin A1c 5.8 % (<=5.6)
== END | disposition home or self-care (01) ==
LOC: MFPLAB 11:11
PROVIDERS: PCP Family Medicine; Referring Provider Family Medicine; Visit Provider Family Medicine
DX: R73.09 Other abnormal glucose (principal); I25.10 Atherosclerotic heart disease of native coronary artery without angina pectoris
CPT/HCPCS: 36415; 80053; 80061; 82607; 82728; 82746; 83036; 83540; 83550; 85025

== ENCOUNTER → 2025-07-08 | Outpatient (CLI) | payer MEDICARE, OTHER, SELFPAY ==
[2021-07-18 08:07] VITALS: BMI 27.5
[2025-07-08 11:53] LABS: Mucous, Urine 0 SEEN /hpf (<or=2+); Red Blood Cells-Urine 0 SEEN /hpf (0-5); Squamous Epithelial Cells - UA 0 SEEN /hpf (0-5)
[2025-07-08 15:06] LABS: Color, Urine Yellow (Yellow); Glucose, Dipstick Normal (Normal); Ketone-Dipstick Negative (Negative); Leukocyte Esterase-Dipstick 100 /ul (Negative); Nitrite-Dipstick Negative (Negative); Occult Blood-Urine Negative /ul (Negative); Protein-Dipstick Negative (Negative); Specific Gravity, Urine 1.010 (1.002-1.030); Urine Bilirubin Dipstick Negative (Negative)
[2025-07-08 15:09] LABS: Hematocrit 33.2 % (40-54); Hemoglobin 11.0 g/dL (13.0-16.5); Immature Granulocytes Count 0.020 X10^3/uL (0.0-0.0); Mean Corp Hgb Conc 33.1 g/dL (32-36); Mean Corpuscular Volume 98.5 fL (80-94); Mean Platelet Vol. 9.0 fl (6.2-12.0); NRBC Flagged by Analyzer 0 % (0-5); Platelet Count 203 K/mm3 (150-450); RBC Distribution Width CV 13.7 % (11.6-14.6); RBC Distribution Width SD 48.7 fl (35.1-43.9); Red Blood Count 3.37 M/mm3 (4.6-6.2); White Blood Count 3.9 K/mm3 (4.4-11.0)
[2025-07-08 15:59] LABS: AST(SGOT) 23 U/L (<=37); Alanine Aminotransfer ALT/SGPT 21 U/L (<=46); Albumin, Serum 4.4 g/dL (3.4-4.8); Alkaline Phosphatase 63 U/L (40-129); Anion Gap 11 (5-15); BUN 17 mg/dL (4-19); BUN/Creat Ratio 15.8 RATIO (10-20); Calcium,Total 9.8 mg/dL (7.6-11.0); Carbon Dioxide 24.3 mmol/L (21.0-32.0); Chloride 103 mmol/L (98-108); Cholesterol 126 mg/dL (<=200); Ferritin 242 ng/mL (37-417); Globulin 2.9 g/dL (2.2-4.2); Glucose 129 mg/dL (70-99); Low Density Lipoprotein Calc. 43 mg/dL; Potassium 4.6 mmol/L (3.3-5.1); Triglycerides 189 mg/dL; Very Low Density Lipoprotein 38 mg/dL (5-40); Vitamin B12 641 pg/mL (180-914); cholesterol:hdl ratio screen 2.77
[2025-07-08 16:23] LABS: Iron 43 ug/dL (65-175); Iron Binding Capacity,Total 240 ug/dL (250-450); Iron Binding Capacity,Unsat 197 ug/dL (228-428); Magnesium 2.4 mg/dL (1.5-2.2)
[2025-07-08 17:41] LABS: FOLATES,SERUM (FOLIC ACID) 38.30 ng/mL (4.60-34.80)
== END | disposition home or self-care (01) ==
LOC: MFPLAB 11:50
PROVIDERS: PCP Family Medicine; Visit Provider Family Medicine
DX: R73.02 Impaired glucose tolerance (oral) (principal); E78.5 Hyperlipidemia, unspecified; I10 Essential (primary) hypertension; D64.9 Anemia, unspecified
CPT/HCPCS: 36415; 80053; 80061; 81001; 82607; 82728; 82746; 83036; 83540; 83550; 83735; 85025